=== PATIENT | male | born 1950 | race Caucasian/White ===

== ENCOUNTER 2025-05-14 14:39 | Emergency (ER) | payer OTHER, MEDICARE ==
[~2025-05-14] VITALS: Ht 190.5 cm; Wt 112.0 kg
--- NOTE | 2025-05-14 14:51 | ERN ---
ED Note History of Present Illness Stated Complaint: BACK PAIN RADIATING DOWN RT LEG Chief Complaint: Lower Extremity Pain/Injury Time Seen by MD: 14:42 Dictation: PATIENT IS A 75-YEAR-OLD RETIRED HERE WITH COMPLAINTS OF LUMBOSACRAL PAIN WITH SCIATICA TO THE RIGHT LEG THAT RADIATES AROUND TO THE ANTERIOR TIBIAL AREA HE HAS HAD FOR A WEEK TO 10 DAYS. DENIES NEED PRIOR INJURIES OR SURGERIES. SAID HE DID HAVE SOME LOW BACK PAIN MORE THAN 20 YEARS AGO HOWEVER THAT RESOLVED AND HE HAD HAD NO PAIN SINCE. NO CHANGE IN BOWEL OR BLADDER FUNCTION HE [facility] AL[facility], IN HIS SCHEDULED FOR AN MRI AND WELL A TENS UNIT FOR PAIN. NO CHANGE IN BOWEL OR BLADDER FUNCTION NO URINATION CHANGES Allergies: Coded Allergies: No Known Drug Allergies (Unverified Allergy, Unknown, 05/14/25) Past Medical History Past Medical History: Diabetes-Type II, High Cholesterol Surgical History: Other RN Note Reviewed/Agreed w/PFSH: Yes Review of System Dictation CONSTITUTIONAL: NEGATIVE EXCEPT FOR HPI HEAD/FACE: NEGATIVE EXCEPT FOR HPI EENT: NEGATIVE EXCEPT FOR HPI RESPIRATORY: NEGATIVE EXCEPT FOR HPI GASTROINTESTINAL/ABDOMINAL: NEGATIVE EXCEPT FOR HPI GENITOURINARY: NEGATIVE EXCEPT FOR HPI MUSCULOSKELETAL: NEGATIVE EXCEPT FOR HPI RIGHT LUMBOSACRAL PAIN TENDERNESS WITH RIGHT POSTERIOR SCIATICA INTEGUMENTARY: NEGATIVE EXCEPT FOR HPI NEUROLOGICAL/PSYCH: NEGATIVE EXCEPT FOR HPI HEMATOLOGIC/LYMPHATIC: NEGATIVE EXCEPT FOR HPI ALL SYSTEMS NEGATIVE, EXCEPT NOTED ABOVE. 13 POINT REVIEW OF SYSTEMS ASSESSED AND ALL NEGATIVE EXCEPT FOR ABOVE. Initial Vital Sign VS Vital Signs Date Time Temp Pulse Resp B/P (MAP) Pulse Ox O2 Delivery O2 Flow Rate FiO2 05/14/25 14:41 98.2 84 20 125/74 97 Room Air 0 05/14/25 14:58 21 Physical Exam Dictation VITAL SIGNS REVIEWED GENERAL APPEARANCE: ALERT, ORIENTED X 3, SEVERE ACUTE DISTRESS, WELL DEVELOPED, NOURISHED. HEAD AND FACE: NON-TRAUMATIC. EYES: PERRL, PINK CONJUNCTIVAS, EYELID NO TRAUMA, ANTERIOR CHAMBER WITH ARCUS SENILIS. EARS: PINNAS INTACT AND NO SIGNS OF TRAUMA OR ERYTHEMA EAR CANALS CLEAR AND NO DISCHARGE TM NO ERYTHEMA NOSE: NO DISCHARGE, NO BLEEDING. OROPHARYNX: MOUTH NORMAL, TONGUE PINK, PHARYNX CLEAR,NO ERYTHEMA, TONSILS NO EXUDATES, NO ABSCESSES NOTED, MUCOUS MEMBRANE MOIST NECK: SUPPLE, NON-TENDER, NO THYROMEGALY, NO MASSES, NO JVD, NO BRUITS BREAST:DEFERRED CHEST:NO TENDERNESS, NO CREPITUS, NO PARADOXICAL MOVEMENT, NO RETRACTIONS LUNGS:CLEAR, WELL-VENTILATED, SYMMETRIC, NO RALES, NO WHEEZING, NO RHONCHI, NO STRIDOR, GOOD BREATH SOUNDS BILATERALLY HEART: REGULAR RATE, REGULAR RHYTHM, NO MURMUR, NO GALLOPS VASCULAR: NO PERIPHERAL EDEMA, ABDOMEN: SOFT, POSITIVE BOWEL SOUNDS, NONDISTENDED, NO GUARDING, NONTENDER, NO REBOUND, NO MASSES NO HEPATOMEGALY, NO SPLENOMEGALY, NO PECK'S SIGN, NO HERNIAS. RECTAL: DEFERRED GENITAL: DEFERRED NEUROLOGICAL: NORMAL SPEECH, MOTOR FUNCTION INTACT, SENSORY FUNCTION INTACT MUSCULOSKELETAL: NECK NONTENDER, FULL RANGE OF MOTION, MODERATE RIGHT LATERAL LUMBOSACRAL TENDERNESS WITH PALPATION NO STEP-OFFS. NEGATIVE STRAIGHT LEG RAISE BILATERALLY 10 EXTREMITIES: NONTENDER, FULL RANGE OF MOTION SKIN: COLOR PINK, DRY, NO TURGOR, NO RASH, NO LACERATIONS, NO ABRASIONS, NO CONTUSIONS. LYMPHATIC: DEFERRED Results (Laboratory/Radiology) Laboratory/Radiology LUMBOSACRAL X-RAYS DEMONSTRATE DEGENERATIVE CHANGES ONLY NO FRACTURES Labs Reviewed?: Yes ED Course ED Course Orders Procedure Category Date Status Time Lumbar Spine 2-3vws RAD 05/14/25 Taken 14:47 Sacrum/Coccyx 2+Vws RAD 05/14/25 Taken 14:47 Cyclobenzaprine Hcl PHA 05/14/25 In Process (Cyclobenzaprine Hcl 15:00 Dexamethasone 4mg/Ml PHA 05/14/25 In Process 1ml Vial (Dexametha 15:00 Hydrocodone/Apap PHA 05/14/25 In Process 5/325 ([place] 5/325mg) 15:00 Ketorolac 60mg/2ml PHA 05/14/25 In Process (Toradol 60mg/2ml) 15:00 Current Medications Medications (Trade) Dose Ordered Sig/Natividad Route PRN Reason Start Time Stop Time Status Last Admin Dose Admin Acetaminophen/ Hydrocodone Bitart (NORco 5/325MG) 1 tab ONCE PO 05/14/25 15:00 05/14/25 19:00 Cyclobenzaprine HCl (Cyclobenzaprine HCl) 10 mg ONCE PO 05/14/25 15:00 05/14/25 19:00 Dexamethasone Sodium Phosphate (dexaMETHasone 4MG/ML 1ML VIAL) 8 mg ONCE IM 05/14/25 15:00 05/14/25 19:00 Ketorolac Tromethamine (toRADol 60MG/ 2ML) 60 mg ONCE IM 05/14/25 15:00 05/14/25 19:00 Vital Signs Date Time Temp Pulse Resp B/P (MAP) Pulse Ox O2 Delivery O2 Flow Rate FiO2 05/14/25 14:58 98.2 86 12 181/89 98 Room Air* 0 21 05/14/25 14:41 98.2 84 20 125/74 97 Room Air 0 1550/PATIENT STATES PAIN IS BEING REDUCED AFTER TREATMENT. HE WAS AWARE THAT HIS PAIN WAS 10/10 WHEN HE ARRIVED AND I WAS NOT FULLY EXPECTING TO RELIEVE IT COMPLETELY. HE WILL BE DISCHARGED HOME WITH IBUPROFEN AND FLEXERIL WITH TYLENOL NO. 3 FOR SEVERE PAIN PERTINENT NEUROSURGERY. Medical Decision Making MDM MEDICAL DECISION-MAKING WAS BASED ON EMPIRIC TREATMENT FOR CHRONIC LOW BACK PAIN WITH SCIATICA X-RAYS OF LUMBAR AND SACRAL BACK WERE OBTAINED DEGENERATIVE CHANGES ONLY PAIN WAS BEING REDUCED AFTER TREATMENT. DISCHARGED HOME WITH MEDICATIONS FOR PAIN AND REFERRAL TO DR. MECCA SMITH NEUROSURGICAL DX & DISP Disposition: Discharge Departure Impression: Primary Impression: Back pain of lumbosacral region with sciatica Condition: Stable Scripts Cyclobenzaprine HCl (Cyclobenzaprine HCl) 10 Mg Tablet 1 TAB PO TID for muscle spasms for 10 Days, #30 TAB 0 Refills Prov: NATALIE LOPEZ [employer] 05/14/25 Ibuprofen (Ibuprofen 800 mg Tab) 800 Mg Tab 800 MG PO Q8H PRN for fever or pain, #30 TAB 0 Refills Prov: NATALIE LOPEZ NP 05/14/25 Acetaminophen with Codeine (Acetaminophen-Cod #3 Tablet) 300 Mg-30 Mg Tablet 1 TAB PO Q6H PRN for MODERATE TO SEVERE PAIN, #15 TAB 0 Refills Prov: NATALIE LOPEZ NP 05/14/25 Additional Instructions: Follow-up with primary care provider in 1 to 2 days. Take medications as directed here in the emergency room. Okay to continue home medications unless otherwise discussed during your visit in the emergency room today. Return to your nearest emergency room if symptoms worsen or if there is no improvement. Call 911 if you need immediate assistance. Take Tylenol or Motrin [id number] as needed and if no contraindications are present. Increase oral hydration. A wound culture or urine culture was ordered here in the emergency room department please follow-up with primary care provider and advise them to get repeat ports from our facility. If you had any Leroy wrap/splints that were applied here, please do not remove them until you see your primary care or specialty. Take Motrin and Flexeril every 8 hours with food for the next three days. Take Tylenol with codeine as needed for severe pain. Compresses to back pain three to 4 times a day. Follow up with neurosurgeon on Friday, call for an appointment. Referrals: MECCA SMITH MD Time of Disposition: 15:52 I have reviewed the case, and I agree with, Diagnosis and Plan NATALIE LOEPZ NP May 14, 2025 14:51
[2025-05-14 14:58] VITALS: BP 181/89; PULSE 86; RESP 12; TEMP 98.3; O2SAT 98
[2025-05-14] MEDS: CYCLOBENZAPRINE HCL 10 MG TABLET PO SCH (15:43)
[2025-05-14] MEDS: HYDROcodone/APAP 5/325 1 TAB TABLET PO SCH (15:44)
[2025-05-14] MEDS ORDERED: ACET-2079 PO (15:56)
[2025-05-14] MEDS ORDERED: CYCL-309 PO (15:56)
[2025-05-14] MEDS ORDERED: IBUP-2077 PO (15:56)
--- NOTE | 2025-05-14 15:56 | HMCIMG ---
EXAM: CR Sacrum and Coccyx, 3 View. CLINICAL HISTORY: ACUTE SACRAL PAIN WITH RIGHT LEG SCIATICA COMPARISON: None provided. FINDINGS: BONES: No acute fracture or aggressive appearing osseous lesion. Bony alignment is anatomic. SOFT TISSUES: The soft tissues are unremarkable. IMPRESSION: No acute osseous abnormality. If clinical concern persist recommend CT imaging of the sacrum/coccyx for further evaluation. /[place]
--- NOTE | 2025-05-14 15:58 | HMCIMG ---
EXAM: CR Lumbar Spine, 3 View. CLINICAL HISTORY: ACUTE LUMBAR PAIN WITH RIGHT LEG SCIATICA COMPARISON: None provided. FINDINGS: There is straightening of the lumbar spine that may reflect paraspinal muscle spasm. There is moderate to severe lumbar spondylosis evident by large anterior osteophytes, syndesmophytes, and facet joint osteoarthritis that is most pronounced from L4-S1. Severe disc disease at L5-S1, and moderate to severe disc disease at L2-L3. Mild grade 1 anterolisthesis of L4 with respect L5 related to facet joint osteoarthritis. Vertebral body heights are maintained, no displaced fracture appreciated. Atherosclerotic vascular calcifications are noted. IMPRESSION: 1. Moderate to severe lumbar spondylosis, most pronounced at L4-S1. 2. Severe disc disease at L5-S1, moderate to severe at L2-L3. 3. Mild grade 1 anterolisthesis of L4 on L5. 4. No acute fracture or dislocation. /[place]
[2025-05-17] MEDS ORDERED: ATOR40TA71 PO (00:13)
[2025-05-17] MEDS ORDERED: LISI20TA24 PO (00:13)
[2025-05-17] MEDS ORDERED: METF750T46 PO (00:13)
[2025-05-17] MEDS ORDERED: GLIP-302 PO (00:13)
[2025-05-17 07:10] LABS: IMMATURE GRANULOCYTE ABSOLUTE 0.02 K/uL (0-1); NUCLEATED RED BLOOD CELLS 0.0 % (0.0-0.19); PLATELET COUNT (AUTO) 320 K/uL (130-400); RED BLOOD CELL COUNT(AUTO) 4.58 MIL/uL (4.50-6.20); RED CELL DISTRIBUTION WIDTH 13.3 % (11.0-15.5); WHITE BLOOD COUNT (AUTO) 6.7 K/uL (4.8-10.8)
[2025-05-17 07:28] LABS: ASPARTATE AMINOTRANSFERASE 23.0 U/L (10-37); CREATININE 1.0 mg/dL (0.5-1.3); GLOMERULAR FILTR. RATE CALC 78.0 mL/min (>90); GLUCOSE,RANDOM 130.0 mg/dL (70-105); SODIUM SERUM 136.0 mmol/L (136-145); TOTAL PROTEIN, SERUM 6.5 g/dL (6.0-8.3); UREA NITROGEN, BLOOD 12.0 mg/dL (7-18)
[2025-05-17 07:59] LABS: ERYTHROCYTE SEDIMENTATION RATE 8 MM/HR (0-20)
[2025-05-17] MEDS ORDERED: LIDOCAINE 4% ADH..PATCH TP SCH (09:00)
[2025-05-17] MEDS ORDERED: EMPA25TA PO (10:14)
[2025-05-17] MEDS ORDERED: SEMA1PEN3 SQ (10:14)
[2025-05-17] MEDS ORDERED: CELE-125 PO (10:14)
[2025-05-17] MEDS ORDERED: CITA-107 PO (10:14)
== END 2025-05-14 16:09 | disposition home or self-care (01) ==
LOC: EDH 14:39
DX: M54.41 Lumbago with sciatica, right side (principal); E11.9 Type 2 diabetes mellitus without complications; E78.00 Pure hypercholesterolemia, unspecified
CPT/HCPCS: 99284; 83735; 80053; 85025; 85651; 36415; 72100; 72220; 96372 ×2; J1100; J1885

== ENCOUNTER 2025-05-30 16:18 | Inpatient (IN) | payer MEDICARE, OTHER ==
[~2025-05-30] VITALS: Ht 188 cm; Wt 103.4 kg
[~2025-05-30 16:18] MED LIST: ACET-2079 PO; ATOR40TA71 PO; CELE-125 PO; CITA-107 PO; CYCL-309 PO; EMPA25TA PO; GLIP-302 PO; LISI20TA24 PO; METF750T46 PO; SEMA1PEN3 SQ
[2025-05-30 17:06] LABS: IMMATURE GRANULOCYTE ABSOLUTE 0.04 K/uL (0-1); NUCLEATED RED BLOOD CELLS 0.0 % (0.0-0.19); PLATELET COUNT (AUTO) 430 K/uL (130-400); RED BLOOD CELL COUNT(AUTO) 5.10 MIL/uL (4.50-6.20); RED CELL DISTRIBUTION WIDTH 12.6 % (11.0-15.5); WHITE BLOOD COUNT (AUTO) 11.5 K/uL (4.8-10.8)
--- NOTE | 2025-05-30 17:06 | ERN ---
General Chief Complaint: Post-Op Problem Stated Complaint: SYNCOPE TODAY Time Seen by MD: 16:25 Source: patient History of Present Illness Initial Comments Patient is a 75-year-old male who presented with complaint of syncopal episode. He underwent lumbar spine decompression surgery on 20 May. Following that, he developed dizziness which was followed by loss of consciousness for few minutes yesterday. He had a similar episode today in the morning. Patient denied any chest pain, fever, chills or vomiting. Timing/Duration: 24 hours Associated Symptoms: syncope Allergies: Coded Allergies: No Known Drug Allergies (Unverified Allergy, Unknown, 05/14/25) Home Meds Active Scripts Acetaminophen with Codeine (Acetaminophen-Cod #3 Tablet) 300 Mg-30 Mg Tablet, 1 TAB PO Q6H PRN for MODERATE TO SEVERE PAIN for 3 Days, #12 TAB 0 Refills Prov:IRINA ZARATE IV, MD 05/23/25 Cyclobenzaprine HCl (Cyclobenzaprine HCl) 10 Mg Tablet, 1 TAB PO TID for muscle spasms for 10 Days, #30 TAB 0 Refills Prov:NATALIE LOPEZ NP 05/14/25 Reported Medications Celecoxib (Celecoxib) 200 Mg Capsule, 1 CAP PO BID for pain for 30 Days, #30 CAP 0 Refills 05/17/25 Semaglutide (Ozempic) 1 Mg/0.75 Ml (4 Mg/3 Ml) Pen.injctr, 1 MG SQ QWEEK for 30 Days, #3 ML 0 Refills 05/17/25 Citalopram Hydrobromide (Citalopram HBr) 20 Mg Tablet, 1 TAB PO DAILY for 30 Days, #30 TAB 0 Refills 05/17/25 Empagliflozin (Jardiance) 25 Mg Tablet, 1 TAB PO DAILY for 30 Days, #30 TAB 0 Refills 05/17/25 Atorvastatin Calcium (Atorvastatin Calcium) 40 Mg Tablet, 1 TAB PO HS 05/17/25 Metformin HCl (Metformin HCl ER) 750 Mg Tab.er.24h, 2 TAB PO TID 05/17/25 Glipizide (Glipizide ER) 10 Mg Tab.er.24, 1 TAB PO BID 05/17/25 Lisinopril (Lisinopril) 20 Mg Tablet, 1 TAB PO DAILY 05/17/25 Past Medical History Past Medical History: Diabetes-Type II, High Cholesterol Past Surgical History: Other Surgical History Other: KNEE, SHOULDER Constitutional: (-) chills, (-) diaphoresis, (-) fever, (-) malaise, (-) weakness, (-) other documentation EENTM: (-) eye pain, (-) blurred vision, (-) tearing, (-) double vision, (-) ear pain, (-) ear discharge, (-) nose pain, (-) nose congestion, (-) throat celia n, (-) Throat swelling, (-) mouth pain, (-) tooth pain, (-) mouth swelling, (-) other documentation Respiratory: (-) cough, (-) orthopnea, (-) short of breath, (-) stridor, (-) wheezing, (-) other documentation Cardiovascular: (+) syncope Gastrointestinal/Abdominal: (-) nausea, (-) vomiting, (-) diarrhea, (-) abdomin al pain, (-) abdominal distention, (-) constipation, (-) rectal bleeding, (-) dark stool/melena, (-) other documentation Genitourinary: (-) penile discharge, (-) dysuria, (-) frequency, (-) hematuria, (-) pain, (-) other documentation Musculoskeletal: (-) Neck pain, (-) back pain, (-) Flank Pain, (-) joint pain, (-) joint swelling, (-) muscle pain, (-) muscle stiffness, (-) gout, (-) other documentation Skin: (-) laceration, (-) contusion, (-) abrasion, (-) abscess, (-) rash, (-) change in color, (-) change in hair, (-) change in nails, (-) diaphoresis, (-) dryness, (-) other documentation Neuro: (+) syncope; (-) altered mental status, (-) headache, (-) paralysis, (-) numbness, (-) seizure, (-) pre-existing deficit, (-) tremors, (-) weakness, (-) dizziness, (-) slurred speech, (-) vertigo, (-) other documentation Psych: (-) depression, (-) suicidal ideation, (-) anxiety, (-) emotional problems, (-) auditory hallucinations, (-) visual hallucinations Hematologic/Lymphatic: (-) anemia, (-) blood clots, (-) easy bleeding, (-) easy bruising, (-) swollen glands, (-) other documentation Physical Exam General Appearance: (+) no apparent distress Orientation: (+) alert, (+) oriented x 3 Ear, Nose, Throat: (+) hearing grossly normal, (+) normal ENT inspection, (+) moist mucous membraine, (+) normal pharynx Neck: (+) normal inspection, (+) supple, (+) full range of motion Respiratory: (+) chest non-tender, (+) lungs clear Heart: (+) regular, (+) no gallop Gastrointestinal: (+) soft, (+) non-tender Neurologic/Psychiatric: (+) normal speech, (+) no motor defecits, (+) no sensor y deficits Results Laboratory and Microbiology Lab and Micro Result Laboratory Tests Test 05/30/25 16:21 05/30/25 16:59 05/30/25 19:30 Urine Random Creatinine 104.86 mg/dL (30-135) Urine Random Sodium 71 mmol/l (40-220) White Blood Count 11.5 K/uL (4.8-10.8) H Red Blood Count 5.10 MIL/uL (4.50-6.20) Hemoglobin 15.5 g/dL (14.0-18.0) Hematocrit 47.2 % (42-54) Mean Corpuscular Volume 92.5 fL (79-99) Mean Corpuscular Hemoglobin 30.4 pg (27.0-33.0) Mean Corpuscular Hemoglobin Concent 32.8 g/dL (32.0-36.0) Red Cell Distribution Width 12.6 % (11.0-15.5) Platelet Count 430 K/uL (130-400) H Mean Platelet Volume 8.8 fL (7.5-10.5) Immature Granulocyte % (Auto) 0.3 % (0-1) Neutrophils (%) (Auto) 77.1 % (40.0-77.0) H Lymphocytes (%) (Auto) 12.0 % (21.0-51.0) L Monocytes (%) (Auto) 9.9 % (3.0-13.0) Eosinophils (%) (Auto) 0.2 % (0.0-8.0) Basophils (%) (Auto) 0.5 % (0.0-5.0) Neutrophils # (Auto) 8.8 K/uL (1.8-7.7) H Lymphocytes # (Auto) 1.4 K/uL (1.0-4.8) Monocytes # (Auto) 1.1 K/uL (0.1-1.0) H Eosinophils # (Auto) 0.02 K/uL (0.00-0.70) Basophils # (Auto) 0.06 K/uL (0.00-0.20) Absolute Immature Granulocyte (auto 0.04 K/uL (0-1) Nucleated Red Blood Cells 0.0 % (0.0-0.19) Prothrombin Time 10.9 SEC (9.6-11.6) Prothromb Time International Ratio 1.03 (0.85-1.15) Activated Partial Thromboplast Time 25.9 SEC (26.3-35.5) L D-Dimer Quantitative (PE/DVT) 1484 ng/mL (0-500) *H Sodium Level 134 mmol/L (136-145) L Potassium Level 4.5 mmol/L (3.5-5.1) Chloride Level 97 mmol/L (101-111) L Carbon Dioxide Level 24 mmol/L (21-32) Blood Urea Nitrogen 23 mg/dL (7-18) H Creatinine 1.5 mg/dL (0.5-1.3) H Glomerular Filtration Rate Calc 48 mL/min (>90) Random Glucose 207 mg/dL (70-105) H Hemoglobin A1c 8.5 % (4.0-6.0) H Estimated Average Glucose (eAG) 197 mg/dL (70-126) H Total Calcium 9.7 mg/dL (8.5-10.1) Magnesium Level 1.80 mg/dL (1.80-2.40) Total Creatine Kinase 86 U/L (21-232) Troponin I High Sensitivity 10.5 ng/L (4-75) Urine Color LIGHT-YELLOW (YELLOW) Urine Appearance CLEAR (CLEAR) Urine pH 5.5 (5.0-8.0) Urine Specific [place] 1.039 (1.001-1.031) Urine Protein NEGATIVE mg/dL (NEGATIVE) Urine Glucose (UA) >=1000 mg/dL (NEGATIVE) H Urine Ketones 5 mg/dL (NEGATIVE) H Urine Occult Blood NEGATIVE (NEGATIVE) Urine Nitrate NEGATIVE (NEGATIVE) Urine Bilirubin NEGATIVE mg/dL (NEGATIVE) Urine Urobilinogen 0.2 mg/dL (0.2-1.0) Urine Leukocyte Esterase NEGATIVE Kathleen/uL Urine RBC 2-5 /HPF (0-1) H Urine WBC 0-1 /HPF (0-1) Urine Squamous Epithelial Cells RARE /HPF (0-2) Urine Bacteria None /HPF (None Seen) Urine Hyaline Casts 2-5 /LPF (0-1 /LPF) H Urine Granular Casts (Auto) 0-1 /LPF (None Seen) MDM 8:00 p.m. patient was signed out to me by isaiah physician Differential diagnosis: Orthostatic hypotension, vasovagal episode, blood loss anemia, CSF leak, spinal anesthesia induced syncopes, carotid stenosis, pulmonary embolus, aortic stenosis, coronary event, neurological event This is a 75-year-old male who underwent L4-L5 laminectomy by a few days ago uneventfully. Patient has been experiencing syncopal episode lasting for about a minute. He apparently went to see the neurosurgeon postop and had another episode at his office. Was referred to ER for further evaluatio n. No obvious head injury, no ecchymosis lacerations or bony deformities. No seizure activity no nausea vomitings diarrhea Temperature 98.4 pulse 114 respirations 16 blood pressure 114/65 with a pulse oximetry of 98% on room air On exam I did not see any swelling in the lumbar area or CSF leak 12 lead EKG was significant for sinus tachycardia with somewhat of a low voltage but no other acute STT wave changes noted. I reviewed the labs which showed a white count of 11.5 hemoglobin 15.5 platelets 430. BNP 7 shows a sodium of 134 BUN and creatinine of 23 and 1.5 with a glucose of 207. Troponins are [address] scan of the head is negative for any acute intracranial abnormality. Bilateral lower extremity venous Doppler studies are negative for DVT. CT cervical spine was negative for any acute fractures or dislocations. Evidence of DJD and loss of normal lordotic curve noted. CT scan of the chest with a PE protocol-reviewed by me I did not see any obvious pulmonary embolus. Radiology report has been pending for over 2 hours at this time I had a long discussion with the patient and his spouse about the different causes of the syncope especially postop spinal surgery and available test results and imaging results and recommended that he needs further workup before it can be concluded this may simply be related to vasovagal or spinal anesthesia related. They reluctantly agreed to get further workup including echocardiogram carotids and etcetera Rationale: Tests considered and ordered secondary to shared decision making include: labs, ECG and radiology Previous outside records reviewed: Old ER visits. Risk of complication and/or morbidity or mortality of patient management: None Medications-Per medication reconciliation Need for hospitalization: Patient does meet criteria for hospitalization. Need for emergency major/minor surgery: No There are no social concerns with this patient. Prescription drug management Prescriptions will include symptomatic care Patient's prior external medical records from other ER visits were reviewed by me as indicated. Prior testing and results from previous visits were reviewed. Prior tests were taken into account with medical decision making and resource utilization, independent historian/historians were used to obtain complete medical history. I independently interpreted the test that were performed, results were reviewed by me and considered findings on radiology if ordered. Medical management and examination interpretation discussions were had by me with other qualified healthcare professionals as indicated for the patient's care. ED Course Orders Procedure Category Date Status Time Lactated Ringers PHA 05/30/25 Complete 1000ml (Lactated 16:30 Cardiac Panel LAB 05/30/25 Complete 16:21 Cbc With Differential LAB 05/30/25 Complete 16:21 Basic Metabolic Panel LAB 05/30/25 Complete 16:21 D-Dimer LAB 05/30/25 Complete 16:21 Magnesium LAB 05/30/25 Complete 16:21 Prothrombin Time With LAB 05/30/25 Complete INR 16:21 Partial LAB 05/30/25 Complete Thromboplastin Time 16:21 Urinalysis Profile LAB 05/30/25 Complete 16:21 12 Lead Ekg Tracing- EKG 05/30/25 Complete Technical 16:[address] Ct Chest Pe Protocol CT 05/30/25 Resulted Wwo Cont 16:21 Ct Head/Brain W/O CT 05/30/25 Resulted Contrast 16:21 Ct Cervical Spine W/O CT 05/30/25 Resulted Contrast 16:21 Us Venous Doppler US 05/30/25 Resulted Bilateral 16:21 Iohexol (Omnipaque) PHA 05/30/25 Complete 18:18 Current Medications Medications (Trade) Dose Ordered Sig/Natividad Route PRN Reason Start Time Stop Time Status Last Admin Dose Admin Iohexol (Omnipaque) 75 ml STK-MED ONCE IV 05/30/25 18:18 05/30/25 18:18 DC Lactated Ringer's 1,000 ml @ 0 mls/hr ONCE ONCE IV 05/30/25 16:30 05/30/25 16:31 DC 05/30/25 17:52 Vital Signs Date Time Temp Pulse Resp B/P (MAP) Pulse Ox O2 Delivery O2 Flow Rate FiO2 05/30/25 20:00 98.2 95 20 140/83 99 Room Air* 0 21 05/30/25 17:55 98.4 97 19 123/53 99 Room Air* 0 21 05/30/25 16:20 98.4 114 16 114/65 96 Room Air 0 9:45 p.m. patient accepted by Gunner Suh mid-level provider for [facility] hospitalist group for admission and further management DX & DISP Disposition: Inpatient Decision to Admit Time: 21:57 Departure Impression: Primary Impression: Syncopal episodes Additional Impressions: BIBI (acute kidney injury), Dehydration Condition: Stable Additional Instructions: Patient was informed of all the diagnostic labs and procedures conducted in the emergency room today and demonstrated understanding of the results. I personally reviewed and interpreted all the diagnostic exams performed in the ER today. The patient will be admitted to the hospital for further treatment and evaluation. Disposition-admit to facility Condition-stable/guarded Course-uncertain at this time Pain status-decreased Assessment-exam unchanged Admission Certification- I certify that the patients status is appropriate and is based on my best clinical judgment and the patient's condition as documented in the medical records Referrals: SELF,REFERRAL (PCP) SAGAR OJEDA MD May 30, 2025 17:06 LZI IGLESIAS DO May 30, 2025 18:56 NIKKY RUBIO MD May 30, 2025 21:57
[2025-05-30 17:18] LABS: CREATININE 1.5 mg/dL (0.5-1.3); GLOMERULAR FILTR. RATE CALC 48.0 mL/min (>90); GLUCOSE,RANDOM 207.0 mg/dL (70-105); SODIUM SERUM 134.0 mmol/L (136-145); UREA NITROGEN, BLOOD 23.0 mg/dL (7-18)
--- NOTE | 2025-05-30 17:18 | HMCIMG ---
EXAM: US for Deep Venous Thrombosis, bilateral Lower Extremity. CLINICAL HISTORY: Leg Pain and Swelling. Post back surgery. SOB. Possible PE. TECHNIQUE: Real-time ultrasound scan of the veins of the bilateral lower extremity with color Doppler flow, spectral waveform analysis and compression. COMPARISON: None provided. FINDINGS: DEEP VEINS: The common femoral, superficial femoral, and popliteal veins are echolucent and compressible. There is normal color Doppler flow throughout. The visualized calf veins appear patent. SOFT TISSUES: No popliteal fossa cyst or other abnormalities. IMPRESSION: No deep venous thrombosis evident on bilateral lower extremity examination. /[place]
[2025-05-30 17:19] LABS: INR 1.03 (0.85-1.15)
[2025-05-30 17:25] LABS: CREATINE KINASE, TOTAL 86.0 U/L (21-232)
[2025-05-30] MEDS: LACTATED RINGERS 1000ML 1,000 ML IV ONE (17:52)
[2025-05-30] MEDS ORDERED: IOHEXOL-350 75 ML VIAL IV ONE (18:18)
--- NOTE | 2025-05-30 19:38 | HMCIMG ---
EXAM: CT Cervical Spine Without Intravenous Contrast. CLINICAL HISTORY: High-risk pulmonary embolism (PE). TECHNIQUE: Axial computed tomography images of the cervical spine without intravenous contrast. Sagittal and coronal reformations performed. Dose reduction technique was used including one or more of the following: automated exposure control, adjustment of mA and kV according to patient size, and/or iterative reconstruction. CONTRAST: Without. COMPARISON: None provided. FINDINGS: BONES: No acute fracture or focal osseous lesion. Reversal of the normal lordotic curve. DISCS / DEGENERATIVE CHANGES: Moderate degenerative changes of the cervical spine. SOFT TISSUES: No prevertebral soft tissue swelling. VASCULATURE: Bilateral carotid arteries are involved with atherosclerotic disease. IMPRESSION: 1. No acute cervical spine fracture or dislocation. 2. Moderate degenerative changes of the cervical spine. 3. Reversal of the normal lordotic curve. /[place]
--- NOTE | 2025-05-30 19:38 | HMCIMG ---
EXAM: CT Head Without Intravenous Contrast. CLINICAL HISTORY: High Risk PE TECHNIQUE: Axial computed tomography images of the head/brain without intravenous contrast. Dose reduction technique was used including one or more of the following: automated exposure control, adjustment of mA and kV according to patient size, and/or iterative reconstruction. CONTRAST: None. COMPARISON: None. FINDINGS: BRAIN: No acute intraparenchymal hemorrhage. No mass lesion. No CT evidence for acute territorial infarct. No midline shift or extra-axial collection. Moderate atrophy and moderate chronic degenerative changes. VENTRICLES: No hydrocephalus. ORBITS: The orbits are unremarkable. SINUSES AND MASTOIDS: The paranasal sinuses and mastoid air cells are clear. SOFT TISSUES: No significant facial or scalp soft tissue swelling evident. No radiopaque foreign body is seen. BONES: No acute skull fracture. IMPRESSION: 1. No acute intracranial abnormality. /[place]
[2025-05-30 20:08] LABS: ADD UA MICROSCOPIC YES; APPEARANCE,URINE CLEAR (CLEAR); GLUCOSE, URINE (UA) >=1000 mg/dL (NEGATIVE); LEUKOCYTE ESTERASE ,URINE NEGATIVE Leu/uL (NEGATIVE); NITRATE,URINE NEGATIVE (NEGATIVE); OCCULT BLOOD,URINE NEGATIVE (NEGATIVE)
[2025-05-30 20:09] LABS: SQUAMOUS EPITHELIAL CELL,UR RARE /HPF (0-2)
--- NOTE | 2025-05-30 21:12 | EKG ---
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
--- NOTE | 2025-05-30 21:55 | HP ---
History of Present Illness Reason for Visit: dizziness History of Present Illness Mr. Andrea is a 75-year-old male that was seen and examined today on 05/30/2025. Patient is a good historian of personal health Patient reports that he came to the emergency department with a chief complaint of dizziness. Onset was 05/20/2025. Location is head. Duration is on and off. Character is described as loss of balance. There was no alleviating factors. Patient believes symptoms were aggravated by lumbar laminectomy that he had on 05/20/2025. Patient denies any associated chest pain or shortness and breath. Today in the emergency department creatinine 1.5, BUN 23, glucose 207 mg/dL, urinalysis unremarkable, CT C-spine unremarkable, CT of head unremarkable, venous Doppler study unremarkable. Emergency room physician recommended patient be admitted with a diagnosis of syncope. Past Medical History ADDITIONAL PAST MEDICAL HISTORY: [Hypertension, Diabetes mellitius type2, hyperlipidemia] SOCIAL HISTORY: [Negative for smoking, alcohol use, drug use. Patient lives with his ] SURGICAL HISTORY: [Lumbar laminectomy on 05/20/2025, right shoulder surgery, right knee surgery x3, tonsillectomy] Review of Systems General: No Fever, No Chills, No Night Sweats, No Fatigue, No Malaise, No Appetite, No Other HEENT: No Head Aches, No Visual Changes, No Eye Pain, No Ear Pain, No Dysphasia, No Sinus Congestion, No Post Nasal Drip, No Sore Throat, No Other Pulmonary: No Dyspnea, No Cough, No Pleuritic Chest Pain, No Other Cardiovascular: Lt Headedness; No: Chest Pain, Palpitations, Orthopnea, Paroxysmal Noc. Dyspnea, Edema, Other Gastrointestinal: No: Nausea, Vomiting, Abdominal Pain, Diarrhea, Constipation, Melena, Hematochezia, Other Genitourinary: No Dysuria, No Frequency, No Incontinence, No Hematuria, No Retention, No Other Musculoskeletal: No: other, neck pain, shoulder pain, arm pain, back pain, hand pain, leg pain, foot pain Skin: No Urticaria, No Rash, No Other Neurological: No: Weakness, Numbness, Incoordination, Change in speech, Confu raffi, Seizures, Other Allergies: Coded Allergies: No Known Drug Allergies (Unverified Allergy, Unknown, 05/14/25) Scheduled Atorvastatin Calcium (Atorvastatin Calcium), 1 TAB PO HS, (Reported) Celecoxib (Celecoxib), 1 CAP PO BID, (Reported) Citalopram Hydrobromide (Citalopram HBr), 1 TAB PO DAILY, (Reported) Cyclobenzaprine HCl (Cyclobenzaprine HCl), 1 TAB PO TID Empagliflozin (Jardiance), 1 TAB PO DAILY, (Reported) Glipizide (Glipizide ER), 1 TAB PO BID, (Reported) Lisinopril (Lisinopril), 1 TAB PO DAILY, (Reported) Metformin HCl (Metformin HCl ER), 2 TAB PO TID, (Reported) Semaglutide (Ozempic), 1 MG SQ QWEEK, (Reported) Scheduled PRN Acetaminophen with Codeine (Acetaminophen-Cod #3 Tablet), 1 TAB PO Q6H PRN for MODERATE TO SEVERE PAIN Exam Vital Signs Vital Signs Date Time Temp Pulse Resp B/P (MAP) Pulse Ox O2 Delivery O2 Flow Rate FiO2 05/30/25 17:55 98.4 97 19 123/53 99 Room Air* 0 21 General Appearance: Alert, Oriented X3, Cooperative, No acute distress HEENT: Atraumatic, EOMI, Mucous membr. moist/pink Respiratory: Clear to auscultation, Normal air movement, NL respiratory effort Cardiovascular: Normal S1, Normal S2, Other (Tachycardia) Abdominal: Normal bowel sounds, Soft, No tenderness Extremities: No edema Skin: Other (Well-approximated surgical incision) Neuro: Normal gait, Normal speech, Strength at 5/5 X4 ext, Cranial nerves 3-12 NL Psych/Mental Status: Mental status NL, Mood NL, Thoughts/Content NL Assessment/Plan ASSESSMENT: [ Acute kidney injury, POA, on 05/22/2025 creatinine 1.1, today is 1.5 Syncope, POA Uncontrolled Diabetes mellitius type2, POA Hypertension Hyperlipidemia Recent lumbar laminectomy on 05/20/2025] PLAN: [ Admit patient to medical floor as inpatient status. Place patient on telemetry monitoring. Acute kidney injury: IV fluid maintenance therapy lactated Ringer's 75 mL/HR Calculate FENA Check urine sodium, creatinine, osmolality Avoid nephrotoxic agents when possible Renally dose all medications when possible Consider consulting Nephrology service if any worsening renal function or evidence of ATN. Monitor patient's labs. Weight patient daily. Monitor intake and output. Syncope: Check orthostatic vital signs once per shift Fall precautions Ultrasound carotid Doppler, follow up with the results 2D echo, follow up with the results Neuro checks every 4 hours with the vital signs (check GCS, level of consciousness, extremity movement, pupil reaction, hand grasp strength, speech clarity) Diabetes mellitus type 2: Check hemoglobin A1c in a.m. Glucometer checks a.c. and HS 1800 ADA diet Humulin R sliding scale Hypertension, hyperlipidemia: Consider resuming home medications once they have been reconciled. At time of admission home medications have not been reconciled. For now: Hydralazine 10 mg IV every 4 hours for systolic blood pressure greater than 160 mmHg Atorvastatin 40 mg by mouth once daily. Lumbar laminectomy on 05/20/2025: Consult patient's neurosurgeon, Dr. Ramirez for evaluation and any further recommendations in reference to postoperative care. GI prophylaxis, Protonix DVT prophylaxis, heparin ADVANCED CARE PLANNING 1. Which of the following were discussed? Hospice Care - Yes Therapeutic options - yes Advance Directives - Yes - patient states he does not have any advance directives in place at this time, however his can make decisions for him if he becomes unable Other discussions - patient wishes to remain a full code at this time 2. Discussed with who? Patient 3. Voluntary nature of this service was explained to the patient? Yes 4. Amount of time spent - ___16 minutes____ 5. Reviewed by Physician? (if this service was performed by NPP) Yes This document was generated in part using voice recognition software, occasional wrong word or sound alike substitutions may have occurred due to the inherent limitations of voice recognition software. Read the chart carefully and recognize using context, where the substitutions have occurred. Although every effort was made to edit the content, metal worker and typing errors may occur ATTESTATION BY PHYSICIAN I have seen and examined the patient. I reviewed the documentation, medical decision making, and treatment plan as noted by the mid-level provider above. I agree with the findings and plan of care. ] ERASMO SHERMAN [facility] May 30, 2025 21:55
[2025-05-30] MEDS: 0.9%NACL 1000ML 1,000 ML IV ONE (22:15)
[2025-05-30 22:35] LABS: CREATININE,URINE RANDOM 104.86 mg/dL (30-135)
[2025-05-30 23:20] VITALS: BP 140/73; PULSE 91; RESP 18; TEMP 98
[2025-05-30 23:35] VITALS: O2SAT 96
[2025-05-31] VITALS (11 sets, daily range): BP systolic 125–173; BP diastolic 60–87; PULSE 68–96; RESP 17–20; TEMP 97.5–98.5; O2SAT 95
--- NOTE | 2025-05-31 00:25 | NUR ---
HOME MEDICATIONS ASKED THE PATIENT FOR HIS HOME MEDICATIONS. HE WILL ASK HIS TO BRING THEM TOMORROW.
[2025-05-31 04:30] LABS: IMMATURE GRANULOCYTE ABSOLUTE 0.02 K/uL (0-1); NUCLEATED RED BLOOD CELLS 0.0 % (0.0-0.19); PLATELET COUNT (AUTO) 370 K/uL (130-400); RED BLOOD CELL COUNT(AUTO) 4.30 MIL/uL (4.50-6.20); RED CELL DISTRIBUTION WIDTH 12.8 % (11.0-15.5); WHITE BLOOD COUNT (AUTO) 7.0 K/uL (4.8-10.8)
[2025-05-31 04:49] LABS: CREATININE 1.0 mg/dL (0.5-1.3); GLOMERULAR FILTR. RATE CALC 78.0 mL/min (>90); GLUCOSE,RANDOM 87.0 mg/dL (70-105); PHOSPHORUS 3.9 mg/dL (2.5-4.9); SODIUM SERUM 137.0 mmol/L (136-145); UREA NITROGEN, BLOOD 21.0 mg/dL (7-18)
--- NOTE | 2025-05-31 09:38 | NUR ---
DCP:HOME Pt currently lives at home with his Roxanne Andrea [phone]. Pt does not have any DME, home health, or provider services. Pt states that he is able to complete ADLs independently. PCP is Alf Valdez ([facility] with [facility] and [facility]. At [place] pt will want to go home and family can assist with transportation. Addendum: 05/31/25 at 0940 by ROXANNE MONSON SS Amended: Links added.
--- NOTE | 2025-05-31 11:20 | HMCIMG ---
EXAMINATION: DUPLEX ULTRASOUND EXAMINATION OF THE BILATERAL CAROTID AND VERTEBRAL ARTERIES. CLINICAL HISTORY: Dizziness. COMPARISON: None provided. TECHNIQUE: Real-time ultrasound scan of the bilateral carotid and vertebral arteries, 2-D grayscale, with color Doppler flow and spectral waveform analysis. FINDINGS: Color and spectral Doppler interrogation of the carotid vessels on the right demonstrate peak systolic velocities as follows: CCA (Proximal and distal): 108 and 62 cm/s respectively. Bulb: 78 cm/s. ECA: 109 cm/s. ICA (Proximal, mid, and distal): 58, 108, and 113 cm/s respectively. Vertebral artery demonstrates antegrade flow: 40 cm/s. Right ICA/CCA ratio: 1.8 Peak systolic velocities on the left are as follows: CCA (Proximal and distal): 86 and 76 cm/s respectively. Bulb: 51 cm/s. ECA: 113 cm/s. ICA (Proximal, mid, and distal): 64, 97, and 112 cm/s respectively. Vertebral artery demonstrates antegrade flow: 75 cm/s. Left ICA/CCA ratio: 1.5 Both the common carotid arteries and their branches reveal mild intimal thickening. There are calcified plaques in the bilateral carotid bulb without significant stenosis. There is increased resistive flow in the right vertebral artery. IMPRESSION: Mild intimal thickening in the bilateral carotid arteries and their branches. Calcified plaques in the bilateral carotid bulb without significant stenosis. Increased resistive flow in the right vertebral artery which may suggest distal stenosis. Recommend CT/MR angiogram. /[place]
--- NOTE | 2025-05-31 11:34 | PN ---
[facility] PROGRESS NOTE Date of Service: May 31, 2025 Time of Service: 11:21 SUBJECTIVE: [ ] Patient reports that he came to the emergency department with a chief complaint of dizziness. Onset was 05/20/2025. Location is head. Duration is on and off. Character is described as loss of balance. There was no alleviating factors. Patient believes symptoms were aggravated by lumbar laminectomy that he had on 05/20/2025. Patient denies any associated chest pain or shortness and breath. Today in the emergency department creatinine 1.5, BUN 23, glucose 207 mg/dL, urinalysis unremarkable, CT C-spine unremarkable, CT of head unremarkable, venous Doppler study unremarkable. Emergency room physician recommended patient be admitted with a diagnosis of syncope. 05/31/2025 patient was seen earlier patient is fully awake alert oriented x3 patient denies any dizziness at this time we will have physical therapy start working with patient. Echo was done pending results crowded done pending results. Occult blood we will be collected and anemia workup. Patient denied chest pain. REVIEW OF SYSTEMS CONSTITUTIONAL: Denies fevers, chills, or night sweats. No unintentional weight loss reported. NEUROLOGICAL: Denies headache, amaurosis fugax, motor weakness, sensory deficit, vertigo/spinning sensation, gait abnormalities, or tremors. ENT: No hearing loss, otalgia, otorrhea, rhinitis, rhinorrhea, hoarseness, or sore throat. CARDIOVASCULAR: Denies any exertional angina, dyspnea on exertion, orthopnea, paroxysmal nocturnal dyspnea, palpitations, life-threatening arrhythmias, claudication. PULMONARY: Denies any shortness of breath, cough, phlegm/sputum, hemoptysis, pleuritic chest pain. SLEEP: Denies morning headaches, daytime somnolence or napping. Denies difficulty falling asleep, staying asleep, waking from sleep. Denies knowledge of snoring. GASTROINTESTINAL: Denies any type of dysphagia to either liquids or solids. Denies nausea, vomiting, pyrosis, early satiety, abdominal pain, diarrhea, constipation, or changes in stool consistency or caliber. Denies coffee-ground emesis, hematemesis, hematochezia, or melanotic stools. GENITOURINARY: Denies frequency, urgency, nocturia, hematuria or incontinence (Storage/Irritative symptoms.) Low urinary stream, straining to void, urinary intermittency or hesitancy, splitting of the voiding stream, terminal dribbling. ENDOCRINOLOGIC: Denies polyuria, polydipsia, polyphagia or heat/cold intolerances. HEMATOLOGIC: Denies thrombophilia/previous clots, or coagulopathy/bleeding disorders. ONCOLOGIC: Denies personal history of malignancy. DERMATOLOGIC: Denies rashes or pruritus. PSYCHIATRIC: Denies any suicidal or homicidal ideation. Denies hallucinations. PHYSICAL EXAM GENERAL APPEARANCE: The patient is awake, alert, and oriented, in no acute cardiopulmonary distress. NEUROLOGICAL: Cranial nerves II-XII grossly intact. Motor is 5/5 in bilateral upper and lower extremities proximal to distal. No sensory deficits. HEENT: Face is symmetric. Pupils are equal and reactive. Extraocular movements are intact. NECK: Supple. No JVD. No thyromegaly. No submental, submandibular, pre- /postauricular, occipital or supraclavicular lymphadenopathy. CHEST: Normal chest expansion. No Telemetry. LUNGS: Absence of any rales, rhonchi or any wheezing. CARDIOVASCULAR: Regular. S1 and S2 normal. No appreciable rubs, murmurs or gallops. ABDOMEN: Soft, nontender, and nondistended. There is no rebound, voluntary guarding, or rigidity. : Deferred. No Arce. EXTREMITIES: Non-edematous and not cyanotic. No clubbing. Good capillary refill. SKIN: No skin breakdown. Vital Signs (last 8hr) Date Time Temp Pulse Resp B/P (MAP) Pulse Ox O2 Delivery O2 Flow Rate FiO2 05/31/25 09:23 95 Room Air* 0 21 05/31/25 09:08 97.9 94 20 165/82 97 Room Air 05/31/25 09:03 97.9 83 18 162/77 95 Room Air 05/31/25 09:00 97.9 85 18 173/87 95 Room Air 05/31/25 08:00 97.5 80 18 136/74 95 Room Air 05/31/25 03:59 97.5 96 18 126/75 92 Room Air 21 05/31/25 03:56 97.5 68 18 125/70 92 Room Air 21 05/31/25 03:55 97.5 68 18 128/60 92 Room Air 21 LABS: Laboratory: Test 05/31/25 05:05 05/31/25 04:22 05/30/25 19:30 05/30/25 16:59 Range/Units Whole Blood Glucose 89 70-110 MG/DL White Blood Count 7.0 # 4.8-10.8 K/uL Red Blood Count 4.30 L 4.50-6.20 MIL/uL Hemoglobin 13.2 L 14.0-18.0 g/dL Hematocrit 38.2 L 42-54 % Mean Corpuscular Volume 88.8 79-99 fL Mean Corpuscular Hemoglobin 30.7 27.0-33.0 pg Mean Corpuscular Hemoglobin Concent 34.6 32.0-36.0 g/dL Red Cell Distribution Width 12.8 11.0-15.5 % Platelet Count 370 130-400 K/uL Mean Platelet Volume 8.9 7.5-10.5 fL Immature Granulocyte % (Auto) 0.3 0-1 % Neutrophils (%) (Auto) 56.9 40.0-77.0 % Lymphocytes (%) (Auto) 29.3 21.0-51.0 % Monocytes (%) (Auto) 12.2 3.0-13.0 % Eosinophils (%) (Auto) 0.7 0.0-8.0 % Basophils (%) (Auto) 0.6 0.0-5.0 % Neutrophils # (Auto) 4.0 1.8-7.7 K/uL Lymphocytes # (Auto) 2.1 1.0-4.8 K/uL Monocytes # (Auto) 0.9 0.1-1.0 K/uL Eosinophils # (Auto) 0.05 0.00-0.70 K/uL Basophils # (Auto) 0.04 0.00-0.20 K/uL Absolute Immature Granulocyte (auto 0.02 0-1 K/uL Nucleated Red Blood Cells 0.0 0.0-0.19 % Sodium Level 137 136-145 mmol/L Potassium Level 4.1 3.5-5.1 mmol/L Chloride Level 102 101-111 mmol/L Carbon Dioxide Level 30 21-32 mmol/L Blood Urea Nitrogen 21 H 7-18 mg/dL Creatinine 1.0 0.5-1.3 mg/dL Glomerular Filtration Rate Calc 78 >90 mL/min Random Glucose 87 # 70-105 mg/dL Total Calcium 8.5 8.5-10.1 mg/dL Phosphorus Level 3.9 2.5-4.9 mg/dL Magnesium Level 1.80 1.80-2.40 mg/dL Urine Color LIGHT-YELLOW YELLOW Urine Appearance CLEAR CLEAR Urine pH 5.5 5.0-8.0 Urine Specific [place] 1.039 H 1.001-1.031 Urine Protein NEGATIVE NEGATIVE mg/dL Urine Glucose (UA) >=1000 H NEGATIVE mg/dL Urine Ketones 5 H NEGATIVE mg/dL Urine Occult Blood NEGATIVE NEGATIVE Urine Nitrate NEGATIVE NEGATIVE Urine Bilirubin NEGATIVE NEGATIVE mg/dL Urine Urobilinogen 0.2 0.2-1.0 mg/dL Urine Leukocyte Esterase NEGATIVE NEGATIVE Kathleen/uL Urine RBC 2-5 H 0-1 /HPF Urine WBC 0-1 0-1 /HPF Urine Squamous Epithelial Cells RARE 0-2 /HPF Urine Bacteria None None Seen /HPF Urine Hyaline Casts 2-5 H 0-1 /LPF /LPF Urine Granular Casts (Auto) 0-1 None Seen /LPF Prothrombin Time 10.9 9.6-11.6 SEC Prothromb Time International Ratio 1.03 0.85-1.15 Activated Partial Thromboplast Time 25.9 L 26.3-35.5 SEC D-Dimer Quantitative (PE/DVT) 1484 *H 0-500 ng/mL Hemoglobin A1c 8.5 H 4.0-6.0 % Estimated Average Glucose (eAG) 197 H 70-126 mg/dL Total Creatine Kinase 86 21-232 U/L Troponin I High Sensitivity 10.5 4-75 ng/L Test 05/30/25 16:21 Range/Units Urine Random Creatinine 104.86 30-135 mg/dL Urine Random Sodium 71 40-220 mmol/l Current Medications Medications (Trade) Dose Ordered Sig/Natividad Route PRN Reason Start Time Stop Time Status Last Admin Dose Admin Acetaminophen (TYLenol 325MG TAB) 650 mg Q6H PRN PO TEMPERATURE GREATER THAN 101.5 05/30/25 22:00 06/29/25 21:59 Atorvastatin Calcium (LIPItor 40MG) 40 mg HS PO 05/31/25 21:00 06/30/25 20:59 Heparin Sodium (Porcine) (HEParin 5,000 UNIT VIAL) 5,000 unit BID SQ 05/31/25 09:00 06/30/25 08:59 05/31/25 09:23 5,000 UNIT Hydralazine HCl (APRESOLine 20MG INJ) 5 mg Q6H PRN IV For:SBP above 160;DBP above 90 05/31/25 16:00 06/30/25 15:59 Hydralazine HCl (APRESOLine 20MG INJ) 10 mg Q6H PRN IV For:SBP above 160;DBP above 90 05/30/25 22:00 05/31/25 11:01 DC Hydralazine HCl (APRESOLine 20MG INJ) 20 mg Q6H PRN IV ADMINISTER FOR SBP > 160 05/31/25 11:00 05/31/25 11:01 DC Hydromorphone HCl (DiLAUDid 0.5MG INJ) 0.25 mg Q4H PRN IVP SEVERE PAIN (7-10) 05/30/25 22:00 06/04/25 21:59 05/31/25 09:20 0.25 MG Insulin Human Regular (humuLIN R 100 UNIT/ML 3ML) INSULIN SLIDING SCAL... ACHS SQ 05/31/25 07:30 06/30/25 07:29 Lactulose (Constulose 20gm/ 30ml Udcup) 20 gm BID PRN PO CONSTIPATION 05/30/25 22:00 06/29/25 21:59 Ondansetron HCl (zoFRAN 4MG INJ) 4 mg Q6H PRN IV NAUSEA/VOMITING 05/30/25 22:00 06/29/25 21:59 Pantoprazole Sodium (PROTonix 40MG TAB) 40 mg DAILY PO 05/31/25 09:00 06/30/25 08:59 05/31/25 09:15 40 MG DIAGNOSTICS / RADIOLOGY: [ ] ASSESSMENT: autonomic imbalance POA Acute kidney injury, ATN POA, resolved Syncope, POA Elevated D-dimer ruled out PE evidence by CT chest POA Leukocytosis Uncontrolled Diabetes mellitius type2, POA Hypertension liable POA Hyperlipidemia Recent lumbar laminectomy on 05/20/2025] Hx: falls POA anemia unspecified POA PLAN: Admit to medical surgical floor PT services fall precautions Orthostatic vital signs repeat not documented Home medication pending to be reviewed and reconciled Imaging echo and carotid Doppler pending results CT chest ruled out PE Continue a.c. HS monitoring with sliding scale coverage A1c 8.5 Replace electrolytes as needed as per protocol ongoing surveillance. PRN hydralazine 5 mg IV as needed for systolic greater than 160. Continue DVT GI prophylaxis. All questions and concerns addressed. ATTESTATION BY PHYSICIAN I have seen and examined the patient. I reviewed the documentation, medical decision making, and treatment plan as noted by the mid-level provider above. I agree with the findings and plan of care. KENDRA HARRELL MD, ELIZABETH NP May 31, 2025 11:34
[2025-05-31 11:39] LABS: % IRON SATURATION 27.7 % (30-44); IRON, SERUM 61.0 mcg/dL (65-175)
--- NOTE | 2025-05-31 14:44 | NUR ---
spoke to dr. Ramirez verbalized he saw pt in his office and he took out nery. No other intervention is needed at this time.
[2025-05-31] MEDS ORDERED: GLIP10TA16 PO (15:32)
[2025-05-31] MEDS ORDERED: METF-445 PO (15:34)
[2025-05-31] MEDS ORDERED: CYCL-309 PO ×2 (15:35→15:42)
[2025-05-31] MEDS ORDERED: EMPA25TA PO (15:41)
[2025-05-31] MEDS ORDERED: PHARMACY COMMUNICATION MISC SCH (16:00)
--- NOTE | 2025-05-31 16:00 | NUR ---
EDUCATED PT ON INTAKE AND OUTPUT READINGS. MADE PT AWARE HE NEEDS TO CALL THE NURSE WHEN URINATING IN THE URINAL IN THE BATHROOM TO MEASURE THE OUTPUT AND TO CALL THE NURSE WHEN HE NEEDS HIS WATER JUG REFILLED TO MEASURE INTAKE. PT VERBALIZED UNDERSTANDING. NO FURTHER ASSISTANCE NEEDED.
[2025-05-31] MEDS: MAGNESIUM 2GM PREMIX 50ML 50 ML IV PRN (16:42)
--- NOTE | 2025-05-31 18:34 | NUR ---
CLEANSED INCISION WITH NORMAL SALINE. PAT DRY AND APPLIED 4X4 GAUZE SECURED WITH TAPE.
--- NOTE | 2025-05-31 23:54 | HMCSR ---
APPROVED REPORT EXAM: Two-dimensional and M-mode echocardiogram with Doppler and color Doppler. INDICATION ICD: R42 Dizziness 2D Dimensions RVDd3.9 cmLVEF(%)60.6 (>50%)LVED Vol(simp.)85.0 mL IVSd1.0 (0.7-1.1cm)FS(%)32 %LVES Vol(simp.)32.0 mL LVDd4.8 (3.8-5.6cm)LA (2D)3.1 (1.6-4.0cm)LVEF(%, simp.)63 % PWd1.2 (0.7-1.1cm)Ao Root(2D)3.7 (2.0-3.7cm)LA ESV INDEX (BP)22.65 mL/m2 IVSs1.6 cmLVOT diam2.2 (1.8-2.4cm) LVDs3.2 (2.5-4.0cm) PWs1.8 cm Deformation Strain Apical 4-16.6 % Apical 2-15.8 % Apical 3-14.0 % Global Strain-15.5 % M-Mode Dimensions EPSS0.9 cm LA (MM)3.3 (1.6-4.0cm) Ao Root(MM)3.9 (2.0-3.7cm) Aortic Valve AoV Vmax2.2 m/Renny Peak GR20.1 mmHgLVOT Vmax1.2 m/s AoV VTI0.4 mAo Mean GR11.0 mmHgLVOT VTI0.22 m DEWEY (VMAX)1.99 cm2AVA (VTI) 2.1 cm2 Mitral Valve MV E Vmax61.4 cm/sDECEL Iqmh443 ms MV A Vmax94.7 cm/sP 1/2 T51 ms E/A ratio0.6MVA (PHT)4.3 cm2 TDI E/E' Fdzcew57.4E/E' Lateral7.1 Medial E' Peak V4.95 cm/sLateral E' Peak V8.70 cm/s Pulmonary Valve PV Vmax1.0 m/sPV VTI0.16 mPV Mean GR2.3 mmHg PV Peak GR4.1 mmHg Left Ventricle The left ventricle is normal size. There is normal LV segmental wall motion. Mild concentric left mary tricular hypertrophy. Left ventricular systolic function is normal, estimated LVEF is 60 to 65%. Stag e I diastolic dysfunction. Right Ventricle The right ventricle is normal size. The right ventricular systolic function is normal. Atria The left atrium size is normal. The right atrium size is normal. Aortic Valve Aortic valve is trileaflet. The leaflets are moderately thickened and calcified. Trace aortic regurgi tation. Mild aortic stenosis: PV 2.0m/s, 11mmHg. Mitral Valve Mild mitral annular calcification is noted. The leaflets are mildly thickened and calcified. Trace mi tral regurgitation. There is no mitral valve stenosis. Tricuspid Valve The tricuspid valve is normal in structure. Trace tricuspid regurgitation. RVSP is normal. Pulmonic Valve Pulmonic valve is not well visualized. Great Vessels The aortic root is normal in size. The IVC is normal in size and collapses >50% with inspiration. Pericardium There is no pericardial effusion. Other Information Quality : Adequate Conclusion Mild concentric left ventricular hypertrophy. There is normal LV segmental wall motion. Left ventricular systolic function is normal, estimated LVEF is 60 to 65%. Stage I diastolic dysfunction. Mild aortic stenosis: PV 2.0m/s, 11mmHg. Trace aortic regurgitation. Trace mitral regurgitation. Trace tricuspid regurgitation. PASP is normal. There is no pericardial effusion.
[2025-06-01] VITALS (8 sets, daily range): BP systolic 116–169; BP diastolic 76–96; PULSE 79–100; RESP 18; TEMP 97.4–98.6; O2SAT 96–97
[2025-06-01 04:37] LABS: IMMATURE GRANULOCYTE ABSOLUTE 0.02 K/uL (0-1); NUCLEATED RED BLOOD CELLS 0.0 % (0.0-0.19); PLATELET COUNT (AUTO) 392 K/uL (130-400); RED BLOOD CELL COUNT(AUTO) 4.47 MIL/uL (4.50-6.20); RED CELL DISTRIBUTION WIDTH 12.4 % (11.0-15.5); WHITE BLOOD COUNT (AUTO) 6.6 K/uL (4.8-10.8)
[2025-06-01 05:07] LABS: ASPARTATE AMINOTRANSFERASE 25.0 U/L (10-37); CREATININE 0.9 mg/dL (0.5-1.3); GLOMERULAR FILTR. RATE CALC 88.0 mL/min (>90); GLUCOSE,RANDOM 147.0 mg/dL (70-105); SODIUM SERUM 131.0 mmol/L (136-145); TOTAL PROTEIN, SERUM 6.6 g/dL (6.0-8.3); UREA NITROGEN, BLOOD 15.0 mg/dL (7-18)
[2025-06-01] MEDS: PoTASSium chloRIDE 20MEQ ER 20 MEQ ERTAB PO PRN (06:10)
--- NOTE | 2025-06-01 09:48 | PN ---
[facility] PROGRESS NOTE Date of Service: Jun 01, 2025 Time of Service: 09:47 SUBJECTIVE: [ ] Patient reports that he came to the emergency department with a chief complaint of dizziness. Onset was 05/20/2025. Location is head. Duration is on and off. Character is described as loss of balance. There was no alleviating factors. Patient believes symptoms were aggravated by lumbar laminectomy that he had on 05/20/2025. Patient denies any associated chest pain or shortness and breath. Today in the emergency department creatinine 1.5, BUN 23, glucose 207 mg/dL, urinalysis unremarkable, CT C-spine unremarkable, CT of head unremarkable, venous Doppler study unremarkable. Emergency room physician recommended patient be admitted with a diagnosis of syncope. 05/31/2025 patient was seen earlier patient is fully awake alert oriented x3 patient denies any dizziness at this time we will have physical therapy start working with patient. Echo was done pending results crowded done pending results. Occult blood we will be collected and anemia workup. Patient denied chest pain. 06/01/25 patient is fully awake alert oriented x3. Patient denies any episodes of dizziness. Encourage patient out of bed to chair with meals. Orthostatic vital signs were negative. Reviewed image and discussed with patient's of results both were negative. Pending CT angiogram head and neck. Physical therapy will work with patient today. Possible discharge in the next 24 hours if no episodes of dizziness or near faint. REVIEW OF SYSTEMS CONSTITUTIONAL: Denies fevers, chills, or night sweats. No unintentional weight loss reported. NEUROLOGICAL: Denies headache, amaurosis fugax, motor weakness, sensory deficit, vertigo/spinning sensation, gait abnormalities, or tremors. ENT: No hearing loss, otalgia, otorrhea, rhinitis, rhinorrhea, hoarseness, or sore throat. CARDIOVASCULAR: Denies any exertional angina, dyspnea on exertion, orthopnea, paroxysmal nocturnal dyspnea, palpitations, life-threatening arrhythmias, claudication. PULMONARY: Denies any shortness of breath, cough, phlegm/sputum, hemoptysis, pleuritic chest pain. SLEEP: Denies morning headaches, daytime somnolence or napping. Denies difficulty falling asleep, staying asleep, waking from sleep. Denies knowledge of snoring. GASTROINTESTINAL: Denies any type of dysphagia to either liquids or solids. Denies nausea, vomiting, pyrosis, early satiety, abdominal pain, diarrhea, constipation, or changes in stool consistency or caliber. Denies coffee-ground emesis, hematemesis, hematochezia, or melanotic stools. GENITOURINARY: Denies frequency, urgency, nocturia, hematuria or incontinence (Storage/Irritative symptoms.) Low urinary stream, straining to void, urinary intermittency or hesitancy, splitting of the voiding stream, terminal dribbling. ENDOCRINOLOGIC: Denies polyuria, polydipsia, polyphagia or heat/cold intolerances. HEMATOLOGIC: Denies thrombophilia/previous clots, or coagulopathy/bleeding disorders. ONCOLOGIC: Denies personal history of malignancy. DERMATOLOGIC: Denies rashes or pruritus. PSYCHIATRIC: Denies any suicidal or homicidal ideation. Denies hallucinations. PHYSICAL EXAM GENERAL APPEARANCE: The patient is awake, alert, and oriented, in no acute cardiopulmonary distress. NEUROLOGICAL: Cranial nerves II-XII grossly intact. Motor is 5/5 in bilateral upper and lower extremities proximal to distal. No sensory deficits. HEENT: Face is symmetric. Pupils are equal and reactive. Extraocular movements are intact. NECK: Supple. No JVD. No thyromegaly. No submental, submandibular, pre- /postauricular, occipital or supraclavicular lymphadenopathy. CHEST: Normal chest expansion. No Telemetry. LUNGS: Absence of any rales, rhonchi or any wheezing. CARDIOVASCULAR: Regular. S1 and S2 normal. No appreciable rubs, murmurs or gallops. ABDOMEN: Soft, nontender, and nondistended. There is no rebound, voluntary guarding, or rigidity. : Deferred. No Arce. EXTREMITIES: Non-edematous and not cyanotic. No clubbing. Good capillary refill. SKIN: No skin breakdown. Vital Signs (last 8hr) Date Time Temp Pulse Resp B/P (MAP) Pulse Ox O2 Delivery O2 Flow Rate FiO2 06/01/25 08:00 100 130/82 90 06/01/25 08:00 91 116/83 91 06/01/25 08:00 98.6 85 18 157/79 96 Room Air 06/01/25 04:00 97.9 84 18 143/79 96 Room Air 169/96 118/76 LABS: Laboratory: Test 06/01/25 05:37 06/01/25 04:24 05/31/25 11:13 05/31/25 04:22 Range/Units Whole Blood Glucose 158 H 70-110 MG/DL White Blood Count 6.6 4.8-10.8 K/uL Red Blood Count 4.47 L 4.50-6.20 MIL/uL Hemoglobin 13.7 L 14.0-18.0 g/dL Hematocrit 39.4 L 42-54 % Mean Corpuscular Volume 88.1 79-99 fL Mean Corpuscular Hemoglobin 30.6 27.0-33.0 pg Mean Corpuscular Hemoglobin Concent 34.8 32.0-36.0 g/dL Red Cell Distribution Width 12.4 11.0-15.5 % Platelet Count 392 130-400 K/uL Mean Platelet Volume 8.8 7.5-10.5 fL Immature Granulocyte % (Auto) 0.3 0-1 % Neutrophils (%) (Auto) 63.4 40.0-77.0 % Lymphocytes (%) (Auto) 23.7 21.0-51.0 % Monocytes (%) (Auto) 11.5 3.0-13.0 % Eosinophils (%) (Auto) 0.6 0.0-8.0 % Basophils (%) (Auto) 0.5 0.0-5.0 % Neutrophils # (Auto) 4.2 1.8-7.7 K/uL Lymphocytes # (Auto) 1.6 1.0-4.8 K/uL Monocytes # (Auto) 0.8 0.1-1.0 K/uL Eosinophils # (Auto) 0.04 0.00-0.70 K/uL Basophils # (Auto) 0.03 0.00-0.20 K/uL Absolute Immature Granulocyte (auto 0.02 0-1 K/uL Nucleated Red Blood Cells 0.0 0.0-0.19 % Sodium Level 131 L 136-145 mmol/L Potassium Level 3.8 3.5-5.1 mmol/L Chloride Level 97 L 101-111 mmol/L Carbon Dioxide Level 27 21-32 mmol/L Blood Urea Nitrogen 15 7-18 mg/dL Creatinine 0.9 0.5-1.3 mg/dL Glomerular Filtration Rate Calc 88 >90 mL/min Random Glucose 147 H 70-105 mg/dL Total Calcium 8.8 8.5-10.1 mg/dL Magnesium Level 1.80 1.80-2.40 mg/dL Total Bilirubin 0.7 0.2-1.0 mg/dL Aspartate Amino Transf (AST/SGOT) 25 10-37 U/L Alanine Aminotransferase (ALT/SGPT) 34 12-78 U/L Alkaline Phosphatase 85 50-136 U/L Total Protein 6.6 6.0-8.3 g/dL Albumin 3.1 L 3.5-5.0 g/dL Iron Level 61 L 65-175 mcg/dL Total Iron Binding Capacity 220 L 250-450 mcg/dL Percent Iron Saturation 27.7 L 30-44 % Phosphorus Level 3.9 2.5-4.9 mg/dL Test 05/30/25 19:30 05/30/25 16:59 05/30/25 16:21 Range/Units Urine Color LIGHT-YELLOW YELLOW Urine Appearance CLEAR CLEAR Urine pH 5.5 5.0-8.0 Urine Specific [place] 1.039 H 1.001-1.031 Urine Protein NEGATIVE NEGATIVE mg/dL Urine Glucose (UA) >=1000 H NEGATIVE mg/dL Urine Ketones 5 H NEGATIVE mg/dL Urine Occult Blood NEGATIVE NEGATIVE Urine Nitrate NEGATIVE NEGATIVE Urine Bilirubin NEGATIVE NEGATIVE mg/dL Urine Urobilinogen 0.2 0.2-1.0 mg/dL Urine Leukocyte Esterase NEGATIVE NEGATIVE Kathleen/uL Urine RBC 2-5 H 0-1 /HPF Urine WBC 0-1 0-1 /HPF Urine Squamous Epithelial Cells RARE 0-2 /HPF Urine Bacteria None None Seen /HPF Urine Hyaline Casts 2-5 H 0-1 /LPF /LPF Urine Granular Casts (Auto) 0-1 None Seen /LPF Prothrombin Time 10.9 9.6-11.6 SEC Prothromb Time International Ratio 1.03 0.85-1.15 Activated Partial Thromboplast Time 25.9 L 26.3-35.5 SEC D-Dimer Quantitative (PE/DVT) 1484 *H 0-500 ng/mL Hemoglobin A1c 8.5 H 4.0-6.0 % Estimated Average Glucose (eAG) 197 H 70-126 mg/dL Total Creatine Kinase 86 21-232 U/L Troponin I High Sensitivity 10.5 4-75 ng/L Urine Osmolality 795 50-1200 mOsm/kg Urine Random Creatinine 104.86 30-135 mg/dL Urine Random Sodium 71 40-220 mmol/l Current Medications Medications (Trade) Dose Ordered Sig/Natividad Route PRN Reason Start Time Stop Time Status Last Admin Dose Admin Acetaminophen (TYLenol 325MG TAB) 650 mg Q6H PRN PO TEMPERATURE GREATER THAN 101.5 05/30/25 22:00 06/29/25 21:59 05/31/25 20:04 650 MG Atorvastatin Calcium (LIPItor 40MG) 40 mg HS PO 05/31/25 21:00 06/30/25 20:59 05/31/25 20:01 40 MG Heparin Sodium (Porcine) (HEParin 5,000 UNIT VIAL) 5,000 unit BID SQ 05/31/25 09:00 06/30/25 08:59 06/01/25 09:37 5,000 UNIT Hydralazine HCl (APRESOLine 20MG INJ) 5 mg Q6H PRN IV For:SBP above 160;DBP above 90 05/31/25 16:00 06/30/25 15:59 Hydralazine HCl (APRESOLine 20MG INJ) 10 mg Q6H PRN IV For:SBP above 160;DBP above 90 05/30/25 22:00 05/31/25 11:01 DC Hydralazine HCl (APRESOLine 20MG INJ) 20 mg Q6H PRN IV ADMINISTER FOR SBP > 160 05/31/25 11:00 05/31/25 11:01 DC Hydromorphone HCl (DiLAUDid 0.5MG INJ) 0.25 mg Q4H PRN IVP SEVERE PAIN (7-10) 05/30/25 22:00 06/04/25 21:59 06/01/25 09:28 0.25 MG Insulin Human Regular (humuLIN R 100 UNIT/ML 3ML) INSULIN SLIDING SCAL... ACHS SQ 05/31/25 07:30 06/30/25 07:29 Lactulose (Constulose 20gm/ 30ml Udcup) 20 gm BID PRN PO CONSTIPATION 05/30/25 22:00 06/29/25 21:59 Magnesium Sulfate 50 ml @ 0 mls/hr PROTOCOL PRN IV low mag level 05/31/25 12:00 06/30/25 11:59 06/01/25 06:10 25 MLS/HR Ondansetron HCl (zoFRAN 4MG INJ) 4 mg Q6H PRN IV NAUSEA/VOMITING 05/30/25 22:00 06/29/25 21:59 06/01/25 00:25 4 MG Pantoprazole Sodium (PROTonix 40MG TAB) 40 mg DAILY PO 05/31/25 09:00 06/30/25 08:59 06/01/25 09:28 40 MG Pharmacy Profile Note (Pharmacy Communication) 1 each AD MISC 05/31/25 16:00 05/31/25 15:54 DC Potassium Chloride 100 ml @ 100 mls/hr AD PRN IV POTASSIUM PROTOCOL 05/31/25 12:00 06/30/25 11:59 Potassium Chloride (K-Dur/Klor-Con 20meq) 20 meq AD PRN PO POTASSIUM PROTOCOL 05/31/25 12:00 06/30/25 11:59 06/01/25 09:28 20 MEQ Potassium Chloride (KCl 10% Elixir 20meq/15ml) 20 meq AD PRN PO POTASSIUM PROTOCOL 05/31/25 12:00 06/30/25 11:59 DIAGNOSTICS / RADIOLOGY: [ ] ASSESSMENT: autonomic imbalance POA Acute kidney injury, ATN POA, resolved Syncope, POA Elevated D-dimer ruled out PE evidence by CT chest POA Leukocytosis Uncontrolled Diabetes mellitius type2, POA Hypertension liable POA Hyperlipidemia Recent lumbar laminectomy on 05/20/2025] Hx: falls POA anemia unspecified POA PLAN: Admit to medical surgical floor PT services fall precautions Orthostatic vital signs repeat not documented Home medication pending to be reviewed and reconciled Imaging echo and carotid Doppler pending results CT chest ruled out PE Continue a.c. HS monitoring with sliding scale coverage A1c 8.5 Replace electrolytes as needed as per protocol ongoing surveillance. PRN hydralazine 5 mg IV as needed for systolic greater than 160. Continue DVT GI prophylaxis. All questions and concerns addressed. ATTESTATION BY PHYSICIAN I have seen and examined the patient. I reviewed the documentation, medical decision making, and treatment plan as noted by the mid-level provider above. I agree with the findings and plan of care. KENDRA HARRELL MD, ELIZABETH NP Jun 01, 2025 09:48
[2025-06-01] MEDS ORDERED: IOHEXOL-350 75 ML VIAL IV ONE (10:49)
[2025-06-02] VITALS (9 sets, daily range): BP systolic 108–152; BP diastolic 57–96; PULSE 78–101; RESP 17–18; TEMP 97.6–98.2; O2SAT 95
[2025-06-02] MEDS: LACTULOSE 20 GM/30 ML UDCUP PO PRN (03:59)
[2025-06-02 04:40] LABS: IMMATURE GRANULOCYTE ABSOLUTE 0.03 K/uL (0-1); NUCLEATED RED BLOOD CELLS 0.0 % (0.0-0.19); PLATELET COUNT (AUTO) 411 K/uL (130-400); RED BLOOD CELL COUNT(AUTO) 4.74 MIL/uL (4.50-6.20); RED CELL DISTRIBUTION WIDTH 12.4 % (11.0-15.5); WHITE BLOOD COUNT (AUTO) 7.2 K/uL (4.8-10.8)
[2025-06-02 05:09] LABS: ASPARTATE AMINOTRANSFERASE 27.0 U/L (10-37); CREATININE 1.0 mg/dL (0.5-1.3); GLOMERULAR FILTR. RATE CALC 78.0 mL/min (>90); GLUCOSE,RANDOM 150.0 mg/dL (70-105); SODIUM SERUM 130.0 mmol/L (136-145); TOTAL PROTEIN, SERUM 7.0 g/dL (6.0-8.3); UREA NITROGEN, BLOOD 15.0 mg/dL (7-18)
--- NOTE | 2025-06-02 13:22 | DS ---
Discharge Summary Hospital Course Summary: Patient reports that he came to the emergency department with a chief complaint of dizziness. Onset was 05/20/2025. Location is head. Duration is on and off. Character is described as loss of balance. There was no alleviating factors. Patient believes symptoms were aggravated by lumbar laminectomy that he had on 05/20/2025. Patient denies any associated chest pain or shortness and breath. Today in the emergency department creatinine 1.5, BUN 23, glucose 207 mg/dL, urinalysis unremarkable, CT C-spine unremarkable, CT of head unremarkable, venous Doppler study unremarkable. Emergency room physician recommended patient be admitted with a diagnosis of syncope. 05/31/2025 patient was seen earlier patient is fully awake alert oriented x3 patient denies any dizziness at this time we will have physical therapy start working with patient. Echo was done pending results crowded done pending results. Occult blood we will be collected and anemia workup. Patient denied chest pain. 06/01/25 patient is fully awake alert oriented x3. Patient denies any episodes of dizziness. Encourage patient out of bed to chair with meals. Orthostatic vital signs were negative. Reviewed image and discussed with patient's of results both were negative. Pending CT angiogram head and neck. Physical therapy will work with patient today. Possible discharge in the next 24 hours if no episodes of dizziness or near faint. 06/02/25 Procedure(s): REASON: high risk PE ORDERING PHYSICIAN: LIZ IGLESIAS DO PROCEDURE: [facility] [place] PE - CT CHEST PE PROTOCOL O CONT ADDENDUM REPORT ADDENDUM: EXAM: CTA Chest with Intravenous Contrast CLINICAL HISTORY: 75 year old male with high risk of pulmonary embolism TECHNIQUE: Axial CTA images of the chest with intravenous contrast. Three-dimensional MIP/volume rendered reformations were performed. Dose reduction technique was used including one or more of the following: automated exposure control, adjustment of mA and kV according to patient size, and/or iterative reconstruction. CONTRAST: Standard dose of IV Contrast. COMPARISON: None provided. FINDINGS: PULMONARY ARTERIES: No intraluminal filling defect suspicious for PE. Pulmonary embolism is negative. AORTA: Atherosclerotic aorta. No thoracic aortic aneurysm or dissection. LUNGS: The lungs are clear. No pulmonary mass. No focal airspace consolidation. PLEURAL SPACES: No pleural effusion. No pneumothorax. HEART AND MEDIASTINUM: Atherosclerotic coronary arteries. No cardiomegaly. No significant pericardial effusion. LYMPH NODES: No lymphadenopathy. BONES: Degenerative changes of the thoracic spine. No focal osseous abnormality or acute fracture. CHEST WALL AND UPPER ABDOMEN: Mild fatty liver. Nonspecific bilateral Perinephric fat stranding. The chest wall is unremarkable. Images through the upper abdomen are unremarkable, except as noted above. IMPRESSION: 1. No evidence of pulmonary embolism. 2. Atherosclerotic aorta without thoracic aortic aneurysm or dissection. /[place] EXAM: CT Head Without Intravenous Contrast. CLINICAL HISTORY: High Risk PE TECHNIQUE: Axial computed tomography images of the head/brain without intravenous contrast. Dose reduction technique was used including one or more of the following: automated exposure control, adjustment of mA and kV according to patient size, and/or iterative reconstruction. CONTRAST: None. COMPARISON: None. FINDINGS: BRAIN: No acute intraparenchymal hemorrhage. No mass lesion. No CT evidence for acute territorial infarct. No midline shift or extra-axial collection. Moderate atrophy and moderate chronic degenerative changes. VENTRICLES: No hydrocephalus. ORBITS: The orbits are unremarkable. SINUSES AND MASTOIDS: The paranasal sinuses and mastoid air cells are clear. SOFT TISSUES: No significant facial or scalp soft tissue swelling evident. No radiopaque foreign body is seen. BONES: No acute skull fracture. IMPRESSION: 1. No acute intracranial abnormality. REASON: possible PE ORDERING PHYSICIAN: LIZ IGLESIAS DO PROCEDURE: VENOUS JOSE C - US VENOUS DOPPLER BILATERAL EXAM: US for Deep Venous Thrombosis, bilateral Lower Extremity. CLINICAL HISTORY: Leg Pain and Swelling. Post back surgery. SOB. Possible PE. TECHNIQUE: Real-time ultrasound scan of the veins of the bilateral lower extremity with color Doppler flow, spectral waveform analysis and compression. COMPARISON: None provided. FINDINGS: DEEP VEINS: The common femoral, superficial femoral, and popliteal veins are echolucent and compressible. There is normal color Doppler flow throughout. The visualized calf veins appear patent. SOFT TISSUES: No popliteal fossa cyst or other abnormalities. IMPRESSION: No deep venous thrombosis evident on bilateral lower extremity examination. REASON: dizziness ORDERING PHYSICIAN: ERASMO SHERMAN PROCEDURE: CAROTID - US CAROTID DUPLEX EXAMINATION: DUPLEX ULTRASOUND EXAMINATION OF THE BILATERAL CAROTID AND VERTEBRAL ARTERIES. CLINICAL HISTORY: Dizziness. COMPARISON: None provided. TECHNIQUE: Real-time ultrasound scan of the bilateral carotid and vertebral arteries, 2-D grayscale, with color Doppler flow and spectral waveform analysis. FINDINGS: Color and spectral Doppler interrogation of the carotid vessels on the right demonstrate peak systolic velocities as follows: CCA (Proximal and distal): 108 and 62 cm/s respectively. Bulb: 78 cm/s. ECA: 109 cm/s. ICA (Proximal, mid, and distal): 58, 108, and 113 cm/s respectively. Vertebral artery demonstrates antegrade flow: 40 cm/s. Right ICA/CCA ratio: 1.8 Peak systolic velocities on the left are as follows: CCA (Proximal and distal): 86 and 76 cm/s respectively. Bulb: 51 cm/s. ECA: 113 cm/s. ICA (Proximal, mid, and distal): 64, 97, and 112 cm/s respectively. Vertebral artery demonstrates antegrade flow: 75 cm/s. Left ICA/CCA ratio: 1.5 Both the common carotid arteries and their branches reveal mild intimal thickening. There are calcified plaques in the bilateral carotid bulb without significant stenosis. There is increased resistive flow in the right vertebral artery. IMPRESSION: Mild intimal thickening in the bilateral carotid arteries and their branches. Calcified plaques in the bilateral carotid bulb without significant stenosis. Increased resistive flow in the right vertebral artery which may suggest distal stenosis. Recommend CT/MR angiogram. REASON: dizziness ORDERING PHYSICIAN: ERASMO SHERMAN PROCEDURE: ECHO CMP - ECHO 2-D COMPLETE APPROVED REPORT EXAM: Two-dimensional and M-mode echocardiogram with Doppler and color Doppler. INDICATION ICD: R42 Dizziness 2D Dimensions RVDd 3.9 cm LVEF(%) 60.6 (>50%) LVED Vol(simp.) 85.0 mL IVSd 1.0 (0.7-1.1cm) FS(%) 32 % LVES Vol(simp.) 32.0 mL LVDd 4.8 (3.8-5.6cm) LA (2D) 3.1 (1.6-4.0cm) LVEF(%, simp.) 63 % PWd 1.2 (0.7-1.1cm) Ao Root(2D) 3.7 (2.0-3.7cm) LA ESV INDEX (BP) 22.65 mL/m2 IVSs 1.6 cm LVOT diam 2.2 (1.8-2.4cm) LVDs 3.2 (2.5-4.0cm) PWs 1.8 cm Deformation Strain Apical 4 -16.6 % Apical 2 -15.8 % Apical 3 -14.0 % Global Strain -15.5 % M-Mode Dimensions EPSS 0.9 cm LA (MM) 3.3 (1.6-4.0cm) Ao Root(MM) 3.9 (2.0-3.7cm) Aortic Valve AoV Vmax 2.2 m/s Ao Peak GR 20.1 mmHg LVOT Vmax 1.2 m/s AoV VTI 0.4 m Ao Mean GR 11.0 mmHg LVOT VTI 0.22 m DEWEY (VMAX) 1.99 cm2 DEWEY (VTI) 2.1 cm2 Mitral Valve MV E Vmax 61.4 cm/s DECEL Time 257 ms MV A Vmax 94.7 cm/s P 1/2 T 51 ms E/A ratio 0.6 MVA (PHT) 4.3 cm2 TDI E/E' Medial 12.4 E/E' Lateral 7.1 Medial E' Peak V 4.95 cm/s Lateral E' Peak V 8.70 cm/s Pulmonary Valve PV Vmax 1.0 m/s PV VTI 0.16 m PV Mean GR 2.3 mmHg PV Peak GR 4.1 mmHg Left Ventricle The left ventricle is normal size. There is normal LV segmental wall motion. Mild concentric left ventricular hypertrophy. Left ventricular systolic function is normal, estimated LVEF is 60 to 65%. Stage I diastolic dysfunction. Right Ventricle The right ventricle is normal size. The right ventricular systolic function is normal. Atria The left atrium size is normal. The right atrium size is normal. Aortic Valve Aortic valve is trileaflet. The leaflets are moderately thickened and calcified. Trace aortic regurgitation. Mild aortic stenosis: PV 2.0m/s, 11mmHg. Mitral Valve Mild mitral annular calcification is noted. The leaflets are mildly thickened and calcified. Trace mitral regurgitation. There is no mitral valve stenosis. Tricuspid Valve The tricuspid valve is normal in structure. Trace tricuspid regurgitation. RVSP is normal. Pulmonic Valve Pulmonic valve is not well visualized. Great Vessels The aortic root is normal in size. The IVC is normal in size and collapses >50% with inspiration. Pericardium There is no pericardial effusion. Other Information Quality : Adequate Conclusion Mild concentric left ventricular hypertrophy. There is normal LV segmental wall motion. Left ventricular systolic function is normal, estimated LVEF is 60 to 65%. Stage I diastolic dysfunction. Mild aortic stenosis: PV 2.0m/s, 11mmHg. Trace aortic regurgitation. Trace mitral regurgitation. Trace tricuspid regurgitation. PASP is normal. There is no pericardial effusion. REASON: high risk PE ORDERING PHYSICIAN: LIZ IGLESIAS DO PROCEDURE: C SPIN WO - CT CERVICAL SPINE W/O CONTRAST EXAM: CT Cervical Spine Without Intravenous Contrast. CLINICAL HISTORY: High-risk pulmonary embolism (PE). TECHNIQUE: Axial computed tomography images of the cervical spine without intravenous contrast. Sagittal and coronal reformations performed. Dose reduction technique was used including one or more of the following: automated exposure control, adjustment of mA and kV according to patient size, and/or iterative reconstruction. CONTRAST: Without. COMPARISON: None provided. FINDINGS: BONES: No acute fracture or focal osseous lesion. Reversal of the normal lordotic curve. DISCS / DEGENERATIVE CHANGES: Moderate degenerative changes of the cervical spine. SOFT TISSUES: No prevertebral soft tissue swelling. VASCULATURE: Bilateral carotid arteries are involved with atherosclerotic disease. IMPRESSION: 1. No acute cervical spine fracture or dislocation. 2. Moderate degenerative changes of the cervical spine. 3. Reversal of the normal lordotic curve. REASON: high risk PE ORDERING PHYSICIAN: LIZ IGLESIAS DO PROCEDURE: HEAD WO - CT HEAD/BRAIN W/O CONTRAST EXAM: CT Head Without Intravenous Contrast. CLINICAL HISTORY: High Risk PE TECHNIQUE: Axial computed tomography images of the head/brain without intravenous contrast. Dose reduction technique was used including one or more of the following: automated exposure control, adjustment of mA and kV according to patient size, and/or iterative reconstruction. CONTRAST: None. COMPARISON: None. FINDINGS: BRAIN: No acute intraparenchymal hemorrhage. No mass lesion. No CT evidence for acute territorial infarct. No midline shift or extra-axial collection. Moderate atrophy and moderate chronic degenerative changes. VENTRICLES: No hydrocephalus. ORBITS: The orbits are unremarkable. SINUSES AND MASTOIDS: The paranasal sinuses and mastoid air cells are clear. SOFT TISSUES: No significant facial or scalp soft tissue swelling evident. No radiopaque foreign body is seen. BONES: No acute skull fracture. IMPRESSION: 1. No acute intracranial abnormality. 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 HOME MEDICATIONS reviewed remain the same CHANGES ON HOME MEDICATIONS none NEW MEDICATIONS patient reports having Tylenol No. 3 we will continue as directed for knee pain. prescription for DME: Walker per DR Bahena TEACHING: fall precaution advised patient to use walker at all times until lower extremities are stronger and stability. Emergency instructions: The patient was instructed to present to the nearest Emergency Department or call 911 should their symptoms return or worsen. Home Medications: Active Scripts Acetaminophen with Codeine (Acetaminophen-Cod #3 Tablet) 300 Mg-30 Mg Tablet, 1 TAB PO Q6H PRN for MODERATE TO SEVERE PAIN for 3 Days, #12 TAB 0 Refills Prov:IRINA ZARATE IV, MD 05/23/25 Reported Medications Cyclobenzaprine HCl (Cyclobenzaprine HCl) 10 Mg Tablet, 10 MG PO DAILY, TAB 05/31/25 Empagliflozin (Jardiance) 25 Mg Tablet, 0.5 TAB PO DAILY for 30 Days, #30 TAB 0 Refills 05/31/25 Cyclobenzaprine HCl (Cyclobenzaprine HCl) 10 Mg Tablet, 1 TAB PO HS for muscle spasms for 30 Days, #30 TAB 0 Refills 05/31/25 Metformin HCl (Metformin HCl) 850 Mg Tablet, 850 MG PO TID, TAB 05/31/25 Glipizide (Glipizide) 10 Mg Tablet, 1 TAB PO BID for 30 Days, #60 TAB 0 Refills 05/31/25 Celecoxib (Celecoxib) 200 Mg Capsule, 1 CAP PO BID for pain for 30 Days, #30 CAP 0 Refills 05/17/25 Semaglutide (Ozempic) 1 Mg/0.75 Ml (4 Mg/3 Ml) Pen.injctr, 1 MG SQ QWEEK for 30 Days, #3 ML 0 Refills 05/17/25 Citalopram Hydrobromide (Citalopram HBr) 20 Mg Tablet, 1 TAB PO DAILY for 30 Days, #30 TAB 0 Refills 05/17/25 Atorvastatin Calcium (Atorvastatin Calcium) 40 Mg Tablet, 1 TAB PO HS 05/17/25 Lisinopril (Lisinopril) 20 Mg Tablet, 1 TAB PO DAILY 05/17/25 Continued Medications: Acetaminophen with Codeine (Acetaminophen-Cod #3 Tablet) 300 Mg-30 Mg Tablet 1 TAB PO Q6H PRN for MODERATE TO SEVERE PAIN for 3 Days, #12 TAB 0 Refills Atorvastatin Calcium (Atorvastatin Calcium) 40 Mg Tablet 1 TAB PO HS Celecoxib (Celecoxib) 200 Mg Capsule 1 CAP PO BID for pain for 30 Days, #30 CAP 0 Refills Citalopram Hydrobromide (Citalopram HBr) 20 Mg Tablet 1 TAB PO DAILY for 30 Days, #30 TAB 0 Refills Cyclobenzaprine HCl (Cyclobenzaprine HCl) 10 Mg Tablet 1 TAB PO HS for muscle spasms for 30 Days, #30 TAB 0 Refills Cyclobenzaprine HCl (Cyclobenzaprine HCl) 10 Mg Tablet 10 MG PO DAILY, TAB Empagliflozin (Jardiance) 25 Mg Tablet 0.5 TAB PO DAILY for 30 Days, #30 TAB 0 Refills Glipizide (Glipizide) 10 Mg Tablet 1 TAB PO BID for 30 Days, #60 TAB 0 Refills Lisinopril (Lisinopril) 20 Mg Tablet 1 TAB PO DAILY Metformin HCl (Metformin HCl) 850 Mg Tablet 850 MG PO TID, TAB Semaglutide (Ozempic) 1 Mg/0.75 Ml (4 Mg/3 Ml) Pen.injctr 1 MG SQ QWEEK for 30 Days, #3 ML 0 Refills Time spent arranging discharge: 31-60 minutes ATTESTATION BY PHYSICIAN I have seen and examined the patient. I reviewed the documentation, medical decision making, and treatment plan as noted by the mid-level provider above. I agree with the findings and plan of care. KENDRA HARRELL MD, ELIZABETH NP Jun 02, 2025 13:22
[2025-06-02] MEDS: PoTASSium chl 10% ELIXIR 20MEQ 20 MEQ/15 ML UDCUP PO PRN (14:42)
--- NOTE | 2025-06-02 15:00 | NUR ---
CT HEAD/NECK RESULTS CONDITIONAL DISCHARGE ORDERS IN PLACE; PENDING RESULTS FOR CT OF HEAD/NECK. CONTACTED RADIOLOGY, ADVISED PENDING DISCHARGE PENDING RESULTS. PER RADIOLOGY, WILL SUBMIT FOR READINGS. PENDING RESULTS. PATIENT AND NOTIFIED. VOICED UNDERSTANDING.
--- NOTE | 2025-06-02 18:57 | NUR ---
CT HEAD/NECK RESULTS CONDITIONAL DISCHARGE ORDERS IN PLACE; PENDING RESULTS FOR CT OF HEAD/NECK. CONTACTED LINDA FROM RADIOLOGY, ADVISED PENDING DISCHARGE PENDING RESULTS. PER RADIOLOGY, WILL SUBMIT FOR READINGS. PENDING RESULTS. PATIENT AND NOTIFIED. VOICED UNDERSTANDING.
[2025-06-03 04:00] VITALS: BP 158/89; PULSE 86; RESP 17; TEMP 98
--- NOTE | 2025-06-03 05:55 | HMCIMG ---
EXAM: CTA Head and Neck with Intravenous Contrast. CLINICAL HISTORY: Syncope. TECHNIQUE: Axial CTA images of the head and neck were performed. Coronal and sagittal reformatted images were generated and reviewed. CT scan done according to ALARA (As Low as Reasonably Achievable). CONTRAST: 75 cc Omnipaque 350. COMPARISON: None provided. FINDINGS: Anterior cerebral arteries are unremarkable. The anterior communicating artery is opacified. The Middle Cerebral arteries are unremarkable. Posterior cerebral arteries are intact. Vertebral arteries are visualized. Dominant left vertebral artery. The basilar artery is unremarkable. CCA, Carotid Bulb, ICA, and origin of the ECA are well opacified. Jugular veins are well opacified. No evidence of aneurysm (greater than 4 mm) or arteriovenous lesion. Included great vessels of the aortic arch are grossly unremarkable. 1.6 x 1.1 cm nodule in the left upper lobe anteriorly. No acute bony changes. IMPRESSION: 1. No evidence of stenosis, aneurysm, or vascular malformation. 2. 1.6 x 1.1 cm nodule in the left upper lobe anteriorly. CT chest is recommended. /[place]
[2025-06-03 07:54] VITALS: BP 161/84; PULSE 78; RESP 16; TEMP 97.6
[2025-06-03 09:02] VITALS: O2SAT 93
--- NOTE | 2025-06-03 10:30 | PN ---
[facility] PROGRESS NOTE Date of Service: Jun 03, 2025 Time of Service: 10:26 SUBJECTIVE: [ ] Patient reports that he came to the emergency department with a chief complaint of dizziness. Onset was 05/20/2025. Location is head. Duration is on and off. Character is described as loss of balance. There was no alleviating factors. Patient believes symptoms were aggravated by lumbar laminectomy that he had on 05/20/2025. Patient denies any associated chest pain or shortness and breath. Today in the emergency department creatinine 1.5, BUN 23, glucose 207 mg/dL, urinalysis unremarkable, CT C-spine unremarkable, CT of head unremarkable, venous Doppler study unremarkable. Emergency room physician recommended patient be admitted with a diagnosis of syncope. 05/31/2025 patient was seen earlier patient is fully awake alert oriented x3 patient denies any dizziness at this time we will have physical therapy start working with patient. Echo was done pending results crowded done pending results. Occult blood we will be collected and anemia workup. Patient denied chest pain. 06/01/25 patient is fully awake alert oriented x3. Patient denies any episodes of dizziness. Encourage patient out of bed to chair with meals. Orthostatic vital signs were negative. Reviewed image and discussed with patient's of results both were negative. Pending CT angiogram head and neck. Physical therapy will work with patient today. Possible discharge in the next 24 hours if no episodes of dizziness or near faint. 06/02/25 discharged was placed on hold CT head and neck was negative however accidentally finding of left upper lobe nodule recommending CT chest therefore foundry supervisor's we will be consulted most likely we will be discharged tomorrow once CT chest is done and seen by Dr Rendon. REVIEW OF SYSTEMS CONSTITUTIONAL: Denies fevers, chills, or night sweats. No unintentional weight loss reported. NEUROLOGICAL: Denies headache, amaurosis fugax, motor weakness, sensory de ficit, vertigo/spinning sensation, gait abnormalities, or tremors. ENT: No hearing loss, otalgia, otorrhea, rhinitis, rhinorrhea, hoarseness, or sore throat. CARDIOVASCULAR: Denies any exertional angina, dyspnea on exertion, orthopnea, paroxysmal nocturnal dyspnea, palpitations, life-threatening arrhythmias, claudication. PULMONARY: Denies any shortness of breath, cough, phlegm/sputum, hemoptysis, pleuritic chest pain. SLEEP: Denies morning headaches, daytime somnolence or napping. Denies difficulty falling asleep, staying asleep, waking from sleep. Denies knowledge of snoring. GASTROINTESTINAL: Denies any type of dysphagia to either liquids or solids. Denies nausea, vomiting, pyrosis, early satiety, abdominal pain, diarrhea, constipation, or changes in stool consistency or caliber. Denies coffee-ground emesis, hematemesis, hematochezia, or melanotic stools. GENITOURINARY: Denies frequency, urgency, nocturia, hematuria or incontinence (Storage/Irritative symptoms.) Low urinary stream, straining to void, urinary intermittency or hesitancy, splitting of the voiding stream, terminal dribbling. ENDOCRINOLOGIC: Denies polyuria, polydipsia, polyphagia or heat/cold intolerances. HEMATOLOGIC: Denies thrombophilia/previous clots, or coagulopathy/bleeding disorders. ONCOLOGIC: Denies personal history of malignancy. DERMATOLOGIC: Denies rashes or pruritus. PSYCHIATRIC: Denies any suicidal or homicidal ideation. Denies hallucinations. PHYSICAL EXAM GENERAL APPEARANCE: The patient is awake, alert, and oriented, in no acute cardiopulmonary distress. NEUROLOGICAL: Cranial nerves II-XII grossly intact. Motor is 5/5 in bilateral upper and lower extremities proximal to distal. No sensory deficits. HEENT: Face is symmetric. Pupils are equal and reactive. Extraocular movements are intact. NECK: Supple. No JVD. No thyromegaly. No submental, submandibular, pre- /postauricular, occipital or supraclavicular lymphadenopathy. CHEST: Normal chest expansion. No Telemetry. LUNGS: Absence of any rales, rhonchi or any wheezing. CARDIOVASCULAR: Regular. S1 and S2 normal. No appreciable rubs, murmurs or gallops. ABDOMEN: Soft, nontender, and nondistended. There is no rebound, voluntary guarding, or rigidity. : Deferred. No Arce. EXTREMITIES: Non-edematous and not cyanotic. No clubbing. Good capillary refill. SKIN: No skin breakdown. Vital Signs (last 8hr) Date Time Temp Pulse Resp B/P (MAP) Pulse Ox O2 Delivery O2 Flow Rate FiO2 06/03/25 09:02 93 Room Air* 0 21 06/03/25 08:56 78 161/84 06/03/25 07:54 97.5 78 16 161/84 93 Room Air 06/03/25 04:00 98.1 86 17 158/89 97 Room Air LABS: Laboratory: Test 06/03/25 06:55 06/03/25 05:23 06/02/25 10:30 06/02/25 04:15 Range/Units Potassium Level 4.5 3.5-5.1 mmol/L Magnesium Level 1.90 1.80-2.40 mg/dL Whole Blood Glucose 172 H 70-110 MG/DL Stool Occult Blood NEGATIVE NEGATIVE White Blood Count 7.2 4.8-10.8 K/uL Red Blood Count 4.74 4.50-6.20 MIL/uL Hemoglobin 14.5 14.0-18.0 g/dL Hematocrit 42.6 42-54 % Mean Corpuscular Volume 89.9 79-99 fL Mean Corpuscular Hemoglobin 30.6 27.0-33.0 pg Mean Corpuscular Hemoglobin Concent 34.0 32.0-36.0 g/dL Red Cell Distribution Width 12.4 11.0-15.5 % Platelet Count 411 H 130-400 K/uL Mean Platelet Volume 9.1 7.5-10.5 fL Immature Granulocyte % (Auto) 0.4 0-1 % Neutrophils (%) (Auto) 68.1 40.0-77.0 % Lymphocytes (%) (Auto) 19.0 L 21.0-51.0 % Monocytes (%) (Auto) 11.9 3.0-13.0 % Eosinophils (%) (Auto) 0.3 0.0-8.0 % Basophils (%) (Auto) 0.3 0.0-5.0 % Neutrophils # (Auto) 4.9 1.8-7.7 K/uL Lymphocytes # (Auto) 1.4 1.0-4.8 K/uL Monocytes # (Auto) 0.9 0.1-1.0 K/uL Eosinophils # (Auto) 0.02 0.00-0.70 K/uL Basophils # (Auto) 0.02 0.00-0.20 K/uL Absolute Immature Granulocyte (auto 0.03 0-1 K/uL Nucleated Red Blood Cells 0.0 0.0-0.19 % Sodium Level 130 L 136-145 mmol/L Chloride Level 94 L 101-111 mmol/L Carbon Dioxide Level 24 21-32 mmol/L Blood Urea Nitrogen 15 7-18 mg/dL Creatinine 1.0 0.5-1.3 mg/dL Glomerular Filtration Rate Calc 78 >90 mL/min Random Glucose 150 H 70-105 mg/dL Total Calcium 9.0 8.5-10.1 mg/dL Total Bilirubin 0.6 0.2-1.0 mg/dL Aspartate Amino Transf (AST/SGOT) 27 10-37 U/L Alanine Aminotransferase (ALT/SGPT) 37 12-78 U/L Alkaline Phosphatase 93 50-136 U/L Total Protein 7.0 6.0-8.3 g/dL Albumin 3.2 L 3.5-5.0 g/dL Current Medications Medications (Trade) Dose Ordered Sig/Natividad Route PRN Reason Start Time Stop Time Status Last Admin Dose Admin Acetaminophen (TYLenol 325MG TAB) 650 mg Q6H PRN PO TEMPERATURE GREATER THAN 101.5 05/30/25 22:00 06/29/25 21:59 05/31/25 20:04 650 MG Atorvastatin Calcium (LIPItor 40MG) 40 mg HS PO 05/31/25 21:00 06/30/25 20:59 06/02/25 21:59 40 MG Heparin Sodium (Porcine) (HEParin 5,000 UNIT VIAL) 5,000 unit BID SQ 05/31/25 09:00 06/30/25 08:59 06/03/25 09:01 5,000 UNIT Hydralazine HCl (APRESOLine 20MG INJ) 5 mg Q6H PRN IV For:SBP above 160;DBP above 90 05/31/25 16:00 06/30/25 15:59 06/03/25 08:56 5 MG Hydralazine HCl (APRESOLine 20MG INJ) 10 mg Q6H PRN IV For:SBP above 160;DBP above 90 05/30/25 22:00 05/31/25 11:01 DC Hydralazine HCl (APRESOLine 20MG INJ) 20 mg Q6H PRN IV ADMINISTER FOR SBP > 160 05/31/25 11:00 05/31/25 11:01 DC Hydromorphone HCl (DiLAUDid 0.5MG INJ) 0.25 mg Q4H PRN IVP SEVERE PAIN (7-10) 05/30/25 22:00 06/04/25 21:59 06/02/25 10:16 0.25 MG Insulin Human Regular (humuLIN R 100 UNIT/ML 3ML) INSULIN SLIDING SCAL... ACHS SQ 05/31/25 07:30 06/30/25 07:29 06/02/25 22:07 2 UNIT Lactulose (Constulose 20gm/ 30ml Udcup) 20 gm BID PRN PO CONSTIPATION 05/30/25 22:00 06/29/25 21:59 06/02/25 03:59 20 GM Magnesium Sulfate 50 ml @ 0 mls/hr PROTOCOL PRN IV low mag level 05/31/25 12:00 06/30/25 11:59 06/02/25 06:57 25 MLS/HR Ondansetron HCl (zoFRAN 4MG INJ) 4 mg Q6H PRN IV NAUSEA/VOMITING 05/30/25 22:00 06/29/25 21:59 06/01/25 00:25 4 MG Pantoprazole Sodium (PROTonix 40MG TAB) 40 mg DAILY PO 05/31/25 09:00 06/30/25 08:59 06/03/25 08:56 40 MG Pharmacy Profile Note (Pharmacy Communication) 1 each AD MISC 05/31/25 16:00 05/31/25 15:54 DC Potassium Chloride 100 ml @ 100 mls/hr AD PRN IV POTASSIUM PROTOCOL 05/31/25 12:00 06/30/25 11:59 Potassium Chloride (K-Dur/Klor-Con 20meq) 20 meq AD PRN PO POTASSIUM PROTOCOL 05/31/25 12:00 06/30/25 11:59 06/02/25 06:57 20 MEQ Potassium Chloride (KCl 10% Elixir 20meq/15ml) 20 meq AD PRN PO POTASSIUM PROTOCOL 05/31/25 12:00 06/30/25 11:59 06/02/25 14:42 20 MEQ DIAGNOSTICS / RADIOLOGY: [ ] assessment autonomic imbalance POA resolved Acute kidney injury, ATN POA, resolved Syncope, POA Elevated D-dimer ruled out PE evidence by CT chest POA Leukocytosis Uncontrolled Diabetes mellitius type2, POA Hypertension liable POA Hyperlipidemia Recent lumbar laminectomy on 05/20/2025] Hx: falls POA anemia unspecified POA accidently findin.6 x1.1 cm nodule in the left upper lobe anteriorly. PLAN: Given to accidentally finding on CT head and neck 1.6 x 1.1 cm nodule in the left upper lobe anteriorly we will do a CT chest in the morning in consult foundry supervisor's to evaluate possible discharge the next 24 hours Admit to medical surgical floor PT services fall precautions Orthostatic vital signs repeat not documented Home medication pending to be reviewed and reconciled Imaging echo and carotid Doppler pending results CT chest ruled out PE Continue a.c. HS monitoring with sliding scale coverage A1c 8.5 Replace electrolytes as needed as per protocol ongoing surveillance. PRN hydralazine 5 mg IV as needed for systolic greater than 160. Continue DVT GI prophylaxis. All questions and concerns addressed. ATTESTATION BY PHYSICIAN I have seen and examined the patient. I reviewed the documentation, medical decision making, and treatment plan as noted by the mid-level provider above. I agree with the findings and plan of care. KENDRA HARRELL MD, ELIZABETH NP Jun 03, 2025 10:30
--- NOTE | 2025-06-03 10:36 | DS ---
Discharge Summary Hospital Course Summary: Patient reports that he came to the emergency department with a chief complaint of dizziness. Onset was 05/20/2025. Location is head. Duration is on and off. Character is described as loss of balance. There was no alleviating factors. Patient believes symptoms were aggravated by lumbar laminectomy that he had on 05/20/2025. Patient denies any associated chest pain or shortness and breath. Today in the emergency department creatinine 1.5, BUN 23, glucose 207 mg/dL, urinalysis unremarkable, CT C-spine unremarkable, CT of head unremarkable, venous Doppler study unremarkable. Emergency room physician recommended patient be admitted with a diagnosis of syncope. 05/31/2025 patient was seen earlier patient is fully awake alert oriented x3 patient denies any dizziness at this time we will have physical therapy start working with patient. Echo was done pending results crowded done pending results. Occult blood we will be collected and anemia workup. Patient denied chest pain. 06/01/25 patient is fully awake alert oriented x3. Patient denies any episodes of dizziness. Encourage patient out of bed to chair with meals. Orthostatic vital signs were negative. Reviewed image and discussed with patient's of results both were negative. Pending CT angiogram head and neck. Physical therapy will work with patient today. Possible discharge in the next 24 hours if no episodes of dizziness or near faint. 06/02/25 discharged was placed on hold CT head and neck was negative however accidentally finding of left upper lobe nodule recommending CT chest therefore patch driller's we will be consulted most likely we will be discharged tomorrow once CT chest is done and seen by Dr Rendon. 06/03/[address] chest repeat consulted patch driller's we will follow the recommendations upon discharge patient is clinically and hemodynamically stable for discharge. Director Plans's cleared the patient patient to repeat CT chest in six months.Patient to follow up in Pulmonary Clinic with Dr. Neelima Roland in [address] scan to re-evaluate pulmonary nodule. The plan was discussed with the patient he agreed. . Procedure(s): REASON: high risk PE ORDERING PHYSICIAN: LIZ IGLESIAS DO PROCEDURE: CHES PE - CT CHEST PE PROTOCOL WWO CONT ADDENDUM REPORT ADDENDUM: EXAM: CTA Chest with Intravenous Contrast CLINICAL HISTORY: 75 year old male with high risk of pulmonary embolism TECHNIQUE: Axial CTA images of the chest with intravenous contrast. Three-dimensional MIP/volume rendered reformations were performed. Dose reduction technique was used including one or more of the following: automated exposure control, adjustment of mA and kV according to patient size, and/or iterative reconstruction. CONTRAST: Standard dose of IV Contrast. COMPARISON: None provided. FINDINGS: PULMONARY ARTERIES: No intraluminal filling defect suspicious for PE. Pulmonary embolism is negative. AORTA: Atherosclerotic aorta. No thoracic aortic aneurysm or dissection. LUNGS: The lungs are clear. No pulmonary mass. No focal airspace consolidation. PLEURAL SPACES: No pleural effusion. No pneumothorax. HEART AND MEDIASTINUM: Atherosclerotic coronary arteries. No cardiomegaly. No significant pericardial effusion. LYMPH NODES: No lymphadenopathy. BONES: Degenerative changes of the thoracic spine. No focal osseous abnormality or acute fracture. CHEST WALL AND UPPER ABDOMEN: Mild fatty liver. Nonspecific bilateral Perinephric fat stranding. The chest wall is unremarkable. Images through the upper abdomen are unremarkable, except as noted above. IMPRESSION: 1. No evidence of pulmonary embolism. 2. Atherosclerotic aorta without thoracic aortic aneurysm or dissection. /[place] EXAM: CT Head Without Intravenous Contrast. CLINICAL HISTORY: High Risk PE TECHNIQUE: Axial computed tomography images of the head/brain without intravenous contrast. Dose reduction technique was used including one or more of the following: automated exposure control, adjustment of mA and kV according to patient size, and/or iterative reconstruction. CONTRAST: None. COMPARISON: None. FINDINGS: BRAIN: No acute intraparenchymal hemorrhage. No mass lesion. No CT evidence for acute territorial infarct. No midline shift or extra-axial collection. Moderate atrophy and moderate chronic degenerative changes. VENTRICLES: No hydrocephalus. ORBITS: The orbits are unremarkable. SINUSES AND MASTOIDS: The paranasal sinuses and mastoid air cells are clear. SOFT TISSUES: No significant facial or scalp soft tissue swelling evident. No radiopaque foreign body is seen. BONES: No acute skull fracture. IMPRESSION: 1. No acute intracranial abnormality. REASON: possible PE ORDERING PHYSICIAN: LIZ IGLESIAS DO PROCEDURE: VENOUS JOSE C - US VENOUS DOPPLER BILATERAL EXAM: US for Deep Venous Thrombosis, bilateral Lower Extremity. CLINICAL HISTORY: Leg Pain and Swelling. Post back surgery. SOB. Possible PE. TECHNIQUE: Real-time ultrasound scan of the veins of the bilateral lower extremity with color Doppler flow, spectral waveform analysis and compression. COMPARISON: None provided. FINDINGS: DEEP VEINS: The common femoral, superficial femoral, and popliteal veins are echolucent and compressible. There is normal color Doppler flow throughout. The visualized calf veins appear patent. SOFT TISSUES: No popliteal fossa cyst or other abnormalities. IMPRESSION: No deep venous thrombosis evident on bilateral lower extremity examination. REASON: dizziness ORDERING PHYSICIAN: ERASMO SHERMAN PROCEDURE: CAROTID - US CAROTID DUPLEX EXAMINATION: DUPLEX ULTRASOUND EXAMINATION OF THE BILATERAL CAROTID AND VERTEBRAL ARTERIES. CLINICAL HISTORY: Dizziness. COMPARISON: None provided. TECHNIQUE: Real-time ultrasound scan of the bilateral carotid and vertebral arteries, 2-D grayscale, with color Doppler flow and spectral waveform analysis. FINDINGS: Color and spectral Doppler interrogation of the carotid vessels on the right demonstrate peak systolic velocities as follows: CCA (Proximal and distal): 108 and 62 cm/s respectively. Bulb: 78 cm/s. ECA: 109 cm/s. ICA (Proximal, mid, and distal): 58, 108, and 113 cm/s respectively. Vertebral artery demonstrates antegrade flow: 40 cm/s. Right ICA/CCA ratio: 1.8 Peak systolic velocities on the left are as follows: CCA (Proximal and distal): 86 and 76 cm/s respectively. Bulb: 51 cm/s. ECA: 113 cm/s. ICA (Proximal, mid, and distal): 64, 97, and 112 cm/s respectively. Vertebral artery demonstrates antegrade flow: 75 cm/s. Left ICA/CCA ratio: 1.5 Both the common carotid arteries and their branches reveal mild intimal thickening. There are calcified plaques in the bilateral carotid bulb without significant stenosis. There is increased resistive flow in the right vertebral artery. IMPRESSION: Mild intimal thickening in the bilateral carotid arteries and their branches. Calcified plaques in the bilateral carotid bulb without significant stenosis. Increased resistive flow in the right vertebral artery which may suggest distal stenosis. Recommend CT/MR angiogram. REASON: dizziness ORDERING PHYSICIAN: ERASMO SHERMAN PROCEDURE: ECHO CMP - ECHO 2-D COMPLETE APPROVED REPORT EXAM: Two-dimensional and M-mode echocardiogram with Doppler and color Doppler. INDICATION ICD: R42 Dizziness 2D Dimensions RVDd 3.9 cm LVEF(%) 60.6 (>50%) LVED Vol(simp.) 85.0 mL IVSd 1.0 (0.7-1.1cm) FS(%) 32 % LVES Vol(simp.) 32.0 mL LVDd 4.8 (3.8-5.6cm) LA (2D) 3.1 (1.6-4.0cm) LVEF(%, simp.) 63 % PWd 1.2 (0.7-1.1cm) Ao Root(2D) 3.7 (2.0-3.7cm) LA ESV INDEX (BP) 22.65 mL/m2 IVSs 1.6 cm LVOT diam 2.2 (1.8-2.4cm) LVDs 3.2 (2.5-4.0cm) PWs 1.8 cm Deformation Strain Apical 4 -16.6 % Apical 2 -15.8 % Apical 3 -14.0 % Global Strain -15.5 % M-Mode Dimensions EPSS 0.9 cm LA (MM) 3.3 (1.6-4.0cm) Ao Root(MM) 3.9 (2.0-3.7cm) Aortic Valve AoV Vmax 2.2 m/s Ao Peak GR 20.1 mmHg LVOT Vmax 1.2 m/s AoV VTI 0.4 m Ao Mean GR 11.0 mmHg LVOT VTI 0.22 m DEWEY (VMAX) 1.99 cm2 DEWEY (VTI) 2.1 cm2 Mitral Valve MV E Vmax 61.4 cm/s DECEL Time 257 ms MV A Vmax 94.7 cm/s P 1/2 T 51 ms E/A ratio 0.6 MVA (PHT) 4.3 cm2 TDI E/E' Medial 12.4 E/E' Lateral 7.1 Medial E' Peak V 4.95 cm/s Lateral E' Peak V 8.70 cm/s Pulmonary Valve PV Vmax 1.0 m/s PV VTI 0.16 m PV Mean GR 2.3 mmHg PV Peak GR 4.1 mmHg Left Ventricle The left ventricle is normal size. There is normal LV segmental wall motion. Mild concentric left ventricular hypertrophy. Left ventricular systolic function is normal, estimated LVEF is 60 to 65%. Stage I diastolic dysfunction. Right Ventricle The right ventricle is normal size. The right ventricular systolic function is normal. Atria The left atrium size is normal. The right atrium size is normal. Aortic Valve Aortic valve is trileaflet. The leaflets are moderately thickened and calcified. Trace aortic regurgitation. Mild aortic stenosis: PV 2.0m/s, 11mmHg. Mitral Valve Mild mitral annular calcification is noted. The leaflets are mildly thickened and calcified. Trace mitral regurgitation. There is no mitral valve stenosis. Tricuspid Valve The tricuspid valve is normal in structure. Trace tricuspid regurgitation. RVSP is normal. Pulmonic Valve Pulmonic valve is not well visualized. Great Vessels The aortic root is normal in size. The IVC is normal in size and collapses >50% with inspiration. Pericardium There is no pericardial effusion. Other Information Quality : Adequate Conclusion Mild concentric left ventricular hypertrophy. There is normal LV segmental wall motion. Left ventricular systolic function is normal, estimated LVEF is 60 to 65%. Stage I diastolic dysfunction. Mild aortic stenosis: PV 2.0m/s, 11mmHg. Trace aortic regurgitation. Trace mitral regurgitation. Trace tricuspid regurgitation. PASP is normal. There is no pericardial effusion. REASON: high risk PE ORDERING PHYSICIAN: LIZ IGLESIAS DO PROCEDURE: C SPIN WO - CT CERVICAL SPINE W/O CONTRAST EXAM: CT Cervical Spine Without Intravenous Contrast. CLINICAL HISTORY: High-risk pulmonary embolism (PE). TECHNIQUE: Axial computed tomography images of the cervical spine without intravenous contrast. Sagittal and coronal reformations performed. Dose reduction technique was used including one or more of the following: automated exposure control, adjustment of mA and kV according to patient size, and/or iterative reconstruction. CONTRAST: Without. COMPARISON: None provided. FINDINGS: BONES: No acute fracture or focal osseous lesion. Reversal of the normal lordotic curve. DISCS / DEGENERATIVE CHANGES: Moderate degenerative changes of the cervical spine. SOFT TISSUES: No prevertebral soft tissue swelling. VASCULATURE: Bilateral carotid arteries are involved with atherosclerotic disease. IMPRESSION: 1. No acute cervical spine fracture or dislocation. 2. Moderate degenerative changes of the cervical spine. 3. Reversal of the normal lordotic curve. REASON: high risk PE ORDERING PHYSICIAN: LIZ IGLESIAS DO PROCEDURE: HEAD WO - CT HEAD/BRAIN W/O CONTRAST EXAM: CT Head Without Intravenous Contrast. CLINICAL HISTORY: High Risk PE TECHNIQUE: Axial computed tomography images of the head/brain without intravenous contrast. Dose reduction technique was used including one or more of the following: automated exposure control, adjustment of mA and kV according to patient size, and/or iterative reconstruction. CONTRAST: None. COMPARISON: None. FINDINGS: BRAIN: No acute intraparenchymal hemorrhage. No mass lesion. No CT evidence for acute territorial infarct. No midline shift or extra-axial collection. Moderate atrophy and moderate chronic degenerative changes. VENTRICLES: No hydrocephalus. ORBITS: The orbits are unremarkable. SINUSES AND MASTOIDS: The paranasal sinuses and mastoid air cells are clear. SOFT TISSUES: No significant facial or scalp soft tissue swelling evident. No radiopaque foreign body is seen. BONES: No acute skull fracture. IMPRESSION: 1. No acute intracranial abnormality. REASON: snycope ORDERING PHYSICIAN: DEB DANIEL NP PROCEDURE: [facility]A [facility] - CT ANGIO HEAD AND NECK EXAM: CTA Head and Neck with Intravenous Contrast. CLINICAL HISTORY: Syncope. TECHNIQUE: Axial CTA images of the head and neck were performed. Coronal and sagittal reformatted images were generated and reviewed. CT scan done according to ALARA (As Low as Reasonably Achievable). CONTRAST: 75 cc Omnipaque 350. COMPARISON: None provided. FINDINGS: Anterior cerebral arteries are unremarkable. The anterior communicating artery is opacified. The Middle Cerebral arteries are unremarkable. Posterior cerebral arteries are intact. Vertebral arteries are visualized. Dominant left vertebral artery. The basilar artery is unremarkable. CCA, Carotid Bulb, ICA, and origin of the ECA are well opacified. Jugular veins are well opacified. No evidence of aneurysm (greater than 4 mm) or arteriovenous lesion. Included great vessels of the aortic arch are grossly unremarkable. 1.6 x 1.1 cm nodule in the left upper lobe anteriorly. No acute bony changes. IMPRESSION: 1. No evidence of stenosis, aneurysm, or vascular malformation. 2. 1.6 x 1.1 cm nodule in the left upper lobe anteriorly. CT chest is recommended. Assessment/Plan: Discharged dx's: autonomic imbalance POA resolved Acute kidney injury, ATN POA, resolved Syncope, POA Elevated D-dimer ruled out PE evidence by CT chest POA Leukocytosis Uncontrolled Diabetes mellitius type2, POA Hypertension liable POA Hyperlipidemia Recent lumbar laminectomy on 05/20/2025] Hx: falls POA anemia unspecified POA accidently findin.6 x1.1 cm nodule in the left upper lobe anteriorly. Patient to follow-up with patch driller's six months for repeat CT chest PLAN: ADMISSION DATE: 05/30/25 DISCHARGE DATE: 06/03/25 DISPOSITION: home CONDITION: stable PROOF PLATE MAKER(S): Director Plans's FOLLOW UP APPOINTMENT(S): will follow up with DR Gupta as directed, .Patient to follow up in Pulmonary Clinic with Dr. Neelima Roland in 6 weeks PROCEDURES: none IMAGING (S) report attached to summary : head neck CT, Echo, Carotid doppler, Head CT Chest CT cervical spine CT MICROBIOLOGY: report attached to summary; ACTIVITY: patient to follow up on Friday for PT services. HOME MEDICATIONS reviewed remain the same CHANGES ON HOME MEDICATIONS none NEW MEDICATIONS patient reports having Tylenol No. 3 we will continue as directed for knee pain. prescription for DME: Walker per DR Bahena TEACHING: fall precaution advised patient to use walker at all times until lower extremities are stronger and stability. Emergency instructions: The patient was instructed to present to the nearest Emergency Department or call 911 should their symptoms return or worsen. Home Medications: Active Scripts Acetaminophen with Codeine (Acetaminophen-Cod #3 Tablet) 300 Mg-30 Mg Tablet, 1 TAB PO Q6H PRN for MODERATE TO SEVERE PAIN for 3 Days, #12 TAB 0 Refills Prov:IRINA ZARATE IV, MD 05/23/25 Reported Medications Cyclobenzaprine HCl (Cyclobenzaprine HCl) 10 Mg Tablet, 10 MG PO DAILY, TAB 05/31/25 Empagliflozin (Jardiance) 25 Mg Tablet, 0.5 TAB PO DAILY for 30 Days, #30 TAB 0 Refills 05/31/25 Cyclobenzaprine HCl (Cyclobenzaprine HCl) 10 Mg Tablet, 1 TAB PO HS for muscle spasms for 30 Days, #30 TAB 0 Refills 05/31/25 Metformin HCl (Metformin HCl) 850 Mg Tablet, 850 MG PO TID, TAB 05/31/25 Glipizide (Glipizide) 10 Mg Tablet, 1 TAB PO BID for 30 Days, #60 TAB 0 Refills 05/31/25 Celecoxib (Celecoxib) 200 Mg Capsule, 1 CAP PO BID for pain for 30 Days, #30 CAP 0 Refills 05/17/25 Semaglutide (Ozempic) 1 Mg/0.75 Ml (4 Mg/3 Ml) Pen.injctr, 1 MG SQ QWEEK for 30 Days, #3 ML 0 Refills 05/17/25 Citalopram Hydrobromide (Citalopram HBr) 20 Mg Tablet, 1 TAB PO DAILY for 30 Days, #30 TAB 0 Refills 05/17/25 Atorvastatin Calcium (Atorvastatin Calcium) 40 Mg Tablet, 1 TAB PO HS 05/17/25 Lisinopril (Lisinopril) 20 Mg Tablet, 1 TAB PO DAILY 05/17/25 Continued Medications: Acetaminophen with Codeine (Acetaminophen-Cod #3 Tablet) 300 Mg-30 Mg Tablet 1 TAB PO Q6H PRN for MODERATE TO SEVERE PAIN for 3 Days, #12 TAB 0 Refills Atorvastatin Calcium (Atorvastatin Calcium) 40 Mg Tablet 1 TAB PO HS Celecoxib (Celecoxib) 200 Mg Capsule 1 CAP PO BID for pain for 30 Days, #30 CAP 0 Refills Citalopram Hydrobromide (Citalopram HBr) 20 Mg Tablet 1 TAB PO DAILY for 30 Days, #30 TAB 0 Refills Cyclobenzaprine HCl (Cyclobenzaprine HCl) 10 Mg Tablet 1 TAB PO HS for muscle spasms for 30 Days, #30 TAB 0 Refills Cyclobenzaprine HCl (Cyclobenzaprine HCl) 10 Mg Tablet 10 MG PO DAILY, TAB Empagliflozin (Jardiance) 25 Mg Tablet 0.5 TAB PO DAILY for 30 Days, #30 TAB 0 Refills Glipizide (Glipizide) 10 Mg Tablet 1 TAB PO BID for 30 Days, #60 TAB 0 Refills Lisinopril (Lisinopril) 20 Mg Tablet 1 TAB PO DAILY Metformin HCl (Metformin HCl) 850 Mg Tablet 850 MG PO TID, TAB Semaglutide (Ozempic) 1 Mg/0.75 Ml (4 Mg/3 Ml) Pen.injctr 1 MG SQ QWEEK for 30 Days, #3 ML 0 Refills Time spent arranging discharge: 31-60 minutes ATTESTATION BY PHYSICIAN I have seen and examined the patient. I reviewed the documentation, medical decision making, and treatment plan as noted by the mid-level provider above. I agree with the findings and plan of care. KENDRA HARRELL MD, ELIZABETH NP Jun 03, 2025 10:36
--- NOTE | 2025-06-03 11:41 | HMCIMG ---
EXAM: CT Chest without IV contrast CLINICAL HISTORY: Lung nodule. TECHNIQUE: Thin section axial CT through the thorax without intravenous contrast. Coronal, sagittal and MIP reformation were generated on the same workstation. CT scan done according to ALARA (As Low as Reasonably Achievable). CONTRAST USED: None. COMPARISON: Prior CT chest dated 05/30/25. FINDINGS: No acute infiltrate or pulmonary mass. A 1 cm calcified nodule in the left upper lobe (series 3, image 23). A 4 mm calcified nodule in the left upper lobe (series 3, image 33). A 5 mm calcified nodule in the right lower lobe (series 3, image 42). No pleural effusions. No pericardial effusion. The heart size is within normal limits. No axillary, supraclavicular, or mediastinal lymphadenopathy. No focal thyroid abnormality. Limited views of the upper abdomen demonstrate a small left renal cortical cyst. Mild perinephric fat stranding on the left side. Tiny calcific focus within the spleen. No acute or suspicious osseous abnormality. IMPRESSION: No acute infiltrate or pulmonary mass. Stable small calcified nodules in the bilateral lung garcia. No further follow-up is required. No significant interval change. /[place]
[2025-06-03 11:55] VITALS: BP 141/78; PULSE 95; RESP 16; TEMP 98
[2025-06-03 12:38] LABS: CREATININE 1.0 mg/dL (0.5-1.3); GLOMERULAR FILTR. RATE CALC 78.0 mL/min (>90); GLUCOSE,RANDOM 247.0 mg/dL (70-105); SODIUM SERUM 128.0 mmol/L (136-145); UREA NITROGEN, BLOOD 15.0 mg/dL (7-18)
[2025-06-03 12:42] LABS: ASPARTATE AMINOTRANSFERASE 32.0 U/L (10-37); TOTAL PROTEIN, SERUM 7.1 g/dL (6.0-8.3)
--- NOTE | 2025-06-03 13:39 | CONS ---
[facility] CONSULTATION NOTE Date Patient Seen: Jun 03, 2025 Time of Visit: 13:24 Supervising Physician: [Dr Rendon Reason for Consultation: MARIA DE JESUS pulmonary nodule ] Primary Care Physician: [ ] Outpatient Specialists: [ ] Inpatient Consults: [BIS PROBLEM LIST: Left upper lobe pulmonary nodule 1.6 x1.1 cm Acute kidney injury, ATN POA, resolved Syncope, POA Elevated D-dimer ruled out PE evidence by CT chest POA Leukocytosis Uncontrolled Diabetes mellitius type2, POA Hypertension liable POA Hyperlipidemia Recent lumbar laminectomy on 05/20/2025] Hx: falls POA anemia unspecified POA PLAN SUMMARY: Outpt follow up in pulmonary clinic in [address] chest in 6 weeks to re evaluate MARIA DE JESUS nodule Arrange outpt PET scan with Dr Lange HPI: Mr. Wallace Jung is a 75 year old male with a past medical history of DM, hypertension, hyperlipidemia presented to this facility with a chief complaint of dizziness. Patient had a CT neck and was found to have a left upper lobe nodule and for this reason we were consulted. Patient had syncope workup and results were unremarkable. Patient is seen sitting up in bed currently working with PT and doing well. Pt reports a history of tobacco use however quit in 1996. Pt reports a familial history of bone and breast cancer. A CT scan of the chest was requested. Images were reviewed by myself as well as by my supervising physician Dr. Rendon. CT scan does show left upper lobe nodule measuring 12 mm. Recommend consult with Dr. Lange to arrange a PET scan. Patient to follow up in Pulmonary Clinic with Dr. Neelima Roland in [address] scan to re-evaluate pulmonary nodule. The plan was discussed with the patient he agreed. Thank you for the consult. PAST MEDICAL HX: see above PAST SURGICAL HX: noncontributory SOCIAL HISTORY: No tobacco, ETOH, or illicit drug use Coded Allergies: No Known Drug Allergies (Unverified Allergy, Unknown, 05/14/25) REVIEW OF SYSTEMS: 12 point ROS reviewed with patient. Pertinent positives mentioned above. Otherwise negative. PHYSICAL EXAM: GENERAL: alert, weak, awake oriented x 3 HEENT: EOMI, Sclera non icteric, moist mucosa NECK: Supple, no JVD, trachea midline LUNGS: Clear breath sounds bilaterally. No wheezes HEART: Regular rate and rhythm. Normal S1 and S2, without murmurs ABD: Abdomen soft, nontender. Bowel sounds present EXT: No clubbing cyanosis or edema NEURO: Alert and oriented to person, follows commands Vital Signs (last 8hr) Date Time Temp Pulse Resp B/P (MAP) Pulse Ox O2 Delivery O2 Flow Rate FiO2 06/03/25 11:55 98.1 95 16 141/78 96 Room Air 06/03/25 09:02 93 Room Air* 0 21 06/03/25 08:56 78 161/84 06/03/25 07:54 97.5 78 16 161/84 93 Room Air LABS: Hematology Labs: Test 06/02/25 04:15 Range/Units White Blood Count 7.2 4.8-10.8 K/uL Red Blood Count 4.74 4.50-6.20 MIL/uL Hemoglobin 14.5 14.0-18.0 g/dL Hematocrit 42.6 42-54 % Mean Corpuscular Volume 89.9 79-99 fL Mean Corpuscular Hemoglobin 30.6 27.0-33.0 pg Mean Corpuscular Hemoglobin Concent 34.0 32.0-36.0 g/dL Red Cell Distribution Width 12.4 11.0-15.5 % Platelet Count 411 H 130-400 K/uL Mean Platelet Volume 9.1 7.5-10.5 fL Immature Granulocyte % (Auto) 0.4 0-1 % Neutrophils (%) (Auto) 68.1 40.0-77.0 % Lymphocytes (%) (Auto) 19.0 L 21.0-51.0 % Monocytes (%) (Auto) 11.9 3.0-13.0 % Eosinophils (%) (Auto) 0.3 0.0-8.0 % Basophils (%) (Auto) 0.3 0.0-5.0 % Neutrophils # (Auto) 4.9 1.8-7.7 K/uL Lymphocytes # (Auto) 1.4 1.0-4.8 K/uL Monocytes # (Auto) 0.9 0.1-1.0 K/uL Eosinophils # (Auto) 0.02 0.00-0.70 K/uL Basophils # (Auto) 0.02 0.00-0.20 K/uL Absolute Immature Granulocyte (auto 0.03 0-1 K/uL Nucleated Red Blood Cells 0.0 0.0-0.19 % Chemistry Labs: Test 06/03/25 12:11 06/03/25 11:26 Range/Units Sodium Level 128 L 136-145 mmol/L Potassium Level 4.1 3.5-5.1 mmol/L Chloride Level 94 L 101-111 mmol/L Carbon Dioxide Level 26 21-32 mmol/L Blood Urea Nitrogen 15 7-18 mg/dL Creatinine 1.0 0.5-1.3 mg/dL Glomerular Filtration Rate Calc 78 >90 mL/min Random Glucose 247 H 70-105 mg/dL Total Calcium 9.1 8.5-10.1 mg/dL Magnesium Level 1.80 1.80-2.40 mg/dL Total Bilirubin 0.5 0.2-1.0 mg/dL Aspartate Amino Transf (AST/SGOT) 32 10-37 U/L Alanine Aminotransferase (ALT/SGPT) 42 12-78 U/L Alkaline Phosphatase 103 50-136 U/L Total Protein 7.1 6.0-8.3 g/dL Albumin 3.2 L 3.5-5.0 g/dL Whole Blood Glucose 263 #H 70-110 MG/DL DIAGNOSTICS / RADIOLOGY RESULTS: PATIENT: WALLACE JUNG MR#: [id number] : 1950 SEX: M AGE: 75 LOCATION: [facility] ORDER 7 STATUS: ADM IN REPORT#: [id number] SERVICE [id number] REASON: LUNG NODULE ORDERING PHYSICIAN: DEB DANIEL NP PROCEDURE: CHEST WO - CT CHEST W/O CONTRAST EXAM: CT Chest without IV contrast CLINICAL HISTORY: Lung nodule. TECHNIQUE: Thin section axial CT through the thorax without intravenous contrast. Coronal, sagittal and MIP reformation were generated on the same workstation. CT scan done according to ALARA (As Low as Reasonably Achievable). CONTRAST USED: None. COMPARISON: Prior CT chest dated 05/30/25. FINDINGS: No acute infiltrate or pulmonary mass. A 1 cm calcified nodule in the left upper lobe (series 3, image 23). A 4 mm calcified nodule in the left upper lobe (series 3, image 33). A 5 mm calcified nodule in the right lower lobe (series 3, image 42). No pleural effusions. No pericardial effusion. The heart size is within normal limits. No axillary, supraclavicular, or mediastinal lymphadenopathy. No focal thyroid abnormality. Limited views of the upper abdomen demonstrate a small left renal cortical cyst. Mild perinephric fat stranding on the left side. Tiny calcific focus within the spleen. No acute or suspicious osseous abnormality. IMPRESSION: No acute infiltrate or pulmonary mass. Stable small calcified nodules in the bilateral lung garcia. No further follow-up is required. No significant interval change. /Dittmer DICTATED BY: KRISTEN JAMES Jr., MD DATE: 06/03/251240 ELECTRONICALLY SIGNED BY: KRISTEN JAMES Jr., MD DATE: 06/03/251240 PLAN NEURO: Minimize central acting medications as possible. Maintain fall precautions, adequate lighting during the day PULMONARY: Supplemental 02 as needed. Maintain aspiration precautions at all times Outpatient PET scan Outpatient follow up in Pulmonary for repeat CT scan of the chest CARDIOVASCULAR: Follow hemodynamics. Vital signs per facility protocol GI & NUTRITION: Continue with nutritional support. Continue stool softeners and laxatives as needed. KIDNEYS & ELECTROLYTES: Strict monitoring of intake, output and overall fluid balance. Avoid nephrotoxic medications to the extent possible. Medications to be dosed according to renal function. Monitor electrolytes and replace as needed ENDOCRINE: Maintain blood glucose between 100-180 at all times. Hypoglycemia protocol in place INFECTIOUS DISEASE: Trend temperature, WBC and procalcitonin level Follow cultures, deescalate antibiotics as soon as possible. Panculture if new onset fever ONCOLOGY/HEMATOLOGY/COAGULATION: Monitor for s/s of bleeding Monitor hemoglobin, coagulation studies as needed SKIN: Pressure ulcer prevention per facility protocol Specialty mattress ORTHO/REHAB: Continue PT/OT Prophylaxis: Continue GI and DVT prophylaxis Code Status: Full Resuscitation Disposition: As per attending ATTESTATION BY PHYSICIAN I reviewed the documentation, medical decision making, and treatment plan as noted by the mid-level provider above. I agree with the findings and plan of care. Donell Rendon MD, ECTOR N NP Jun 03, 2025 13:39
--- NOTE | 2025-06-03 15:52 | NUR ---
Called Dr. Martinez office to schedule PET SCAN for the pt. Office verbalized the dept was closed for the weekend to call back on Friday.
--- NOTE | 2025-06-03 16:29 | NUR ---
DISCHARGED PT WAS EDUCATED ON THE IMPORTANCE OF CHECKING SUGARS AND STAYING COMPLIANT WITH MEDICATIONS. PT WAS MADE AWARE FOLLOW UP WITH [facility] IS REQUIRED TO RECEIVE VOUCHERS FOR FOLLOW UP APPOINTMENTS. IV WAS REMOVED WITHOUT COMPLICATIONS. PT VERBALIZED UNDERSTANDING AND DENIED FURTHER ASSISTANCE. PT IS CURRENTLY WAITING FOR WHEEL CHAIR TO BE AVAILABLE TO TRANSPORT DOWNSTAIRS.
== END 2025-06-03 16:14 | disposition home or self-care (01) | DRG 73 ==
LOC: EDH 16:18 → EDHIP 21:43 → 4BH 23:12
PROVIDERS: ADMIT Internal Medicine; ATTEND Internal Medicine
DX: G90.89 Other disorders of autonomic nervous system (principal); N17.0 Acute kidney failure with tubular necrosis; E86.0 Dehydration; I10 Essential (primary) hypertension; R55 Syncope and collapse; E11.65 Type 2 diabetes mellitus with hyperglycemia; I34.81 Nonrheumatic mitral (valve) annulus calcification; E78.00 Pure hypercholesterolemia, unspecified; D64.9 Anemia, unspecified; D72.829 Elevated white blood cell count, unspecified; Z51.5 Encounter for palliative care; Z79.899 Other long term (current) drug therapy; Z85.3 Personal history of malignant neoplasm of breast; Z86.711 Personal history of pulmonary embolism; Z87.891 Personal history of nicotine dependence
CPT/HCPCS: 36415; 70450; 70496; 70498; 71250; 71270; 72125; 80048; 80053; 81001; 82270; 82550; 82570; 82948; 83036; 83540; 83550; 83735; 83935; 84100; 84132; 84300; 84484; 85025; 85378; 85610; 85730; 93005; 93306; 93356; 93880; 93970; 96360; 96361; 99285; G0378; J0360; J1171; J1644; J1815; J2405; J3475; J7120; Q9967